=== PATIENT | female | born 1940 | race Caucasian/White ===

== ENCOUNTER → 2017-10-31 12:11 | Outpatient (CLI) | payer MEDICARE, MEDICAID, SELFPAY ==
--- NOTE | 2017-10-31 12:18 | XR_ITS ---
XR shoulder LT min 2V HISTORY: ITS.REASON: LT SHOULDER PAIN ORDERING PHYSICIAN: Elvie Murdock PATIENT AGE: 77 years COMPARISON: None FINDINGS: There are moderate to severe osteoarthritic changes of the glenohumeral joint with decrease in the joint space, osteosclerosis, and osteophyte formation. There is subacromial stenosis which may be seen with rotator cuff disease. No acute fracture or dislocation. No lytic or blastic change. IMPRESSION: Osteoarthritis of left shoulder. Subacromial stenosis which may result in rotator cuff disease and may be better evaluated with MRI clinically warranted
== END ==
PROVIDERS: PCP Nurse Practitioner Family; Visit Provider Nurse Practitioner Family
DX: M25.512 Pain in left shoulder (principal)
CPT/HCPCS: 73030

== ENCOUNTER 2020-11-03 10:00 | Outpatient (RCR) | payer MEDICARE, MEDICAID, SELFPAY | END 2020-12-01 11:17 | disposition home or self-care (01) | LOC: OT 10:00 | PROVIDERS: PCP Nurse Practitioner Family; Visit Provider Orthopaedic Surgery Adult Reconstructive Orthopaedic Surgery | DX: M25.512 Pain in left shoulder (principal); M19.012 Primary osteoarthritis, left shoulder | CPT/HCPCS: 97014; 97035; 97110; 97140; 97165; 97530; G0283 ==

== ENCOUNTER 2022-01-29 21:09 | Emergency (ER) | payer MEDICARE, MEDICAID, SELFPAY ==
[2022-01-29 21:10] VITALS: BP 130/99; PULSE 72; RESP 16; TEMP 37.6; O2SAT 95; BMI 34.4
--- NOTE | 2022-01-29 21:18 | ECG_ITS ---
APPROVED REPORT Exam: Resting ECG HR:71 bpm ECG Measurements Heart Rate 71 AXES WV 165 P 52 QRSd 92 QRS 11 QT 385 T 56 QTc 408 Conclusion SINUS RHYTHM NONSPECIFIC ST & T-WAVE ABNORMALITY BORDERLINE ECG UNCONFIRMED REPORT Electronically signed by : Juaquin Jessica MD 01/30/2022 18:41:36
--- NOTE | 2022-01-29 21:25 | XR_ITS ---
PROCEDURE INFORMATION: Exam: XR Chest Exam date and time: 01/29/2022 9:46 PM Age: 81 years old Clinical indication: Shortness of breath TECHNIQUE: Imaging protocol: XR of the chest. Views: 2 views. COMPARISON: CR CXR CHEST(2 VIEWS-NOT PORTABLE) 10/31/2016 6:20 PM FINDINGS: Lungs: Stable interstitial coarsening. No consolidation. Pleural spaces: Unremarkable. No pleural effusion. No pneumothorax. Heart/Mediastinum: Unremarkable. No cardiomegaly. Bones/joints: Unremarkable. IMPRESSION: No acute findings.
--- NOTE | 2022-01-29 21:38 | HMH.EDSOB ---
ED Disposition Clinical Impression: UTI (urinary tract infection) Qualifiers: Urinary tract infection type: site unspecified Hematuria presence: without hematuria Qualified Code(s): N39.0 - Urinary tract infection, site not specified Disposition: Home, Self-Care Condition on Discharge: Good Instructions: DI for Urinary Tract Infection (UTI) Additional Instructions: fluids and call pcp for follow up and urine culture results Prescriptions: levoFLOXacin [Levaquin 500mg tab] 500 mg PO DAILY #7 tab Transmission Status: Pending to [facility] Referrals: Elvie Murdock [Primary Care Provider] - - Critical Care Critical Care Time: No Attestation: On 01/29/22, the high probability of a clinically significant, sudden or life threatening deterioration of the following system(s) required my full and direct attention, intervention and personal management. The time I documented below is in addition to time spent performing reported procedures but includes the following listed in this critical care notation. Medical Decision Making - Medical Records Medical records reviewed: Yes: I reviewed the patient's medical records. - [place] Inquiry Pt receiving controlled substance: No Vital Signs: 01/29/22 21:10 01/29/22 22:00 01/29/22 22:04 Temperature 99.7 F H Temperature Source Oral Pulse Rate 67 69 Pulse Rate [Left Radial] 72 Respiratory Rate 16 Blood Pressure 137/77 Blood Pressure [Right Arm] 130/99 H Blood Pressure Mean [Right Arm] 109 Blood Pressure Source [Right Arm] Automatic Cuff Blood Pressure Position [Right Arm] Sitting 02 Sat by Pulse Oximetry 95 93 L Oxygen Delivery Method Room Air Room Air 01/29/22 22:31 01/29/22 23:00 01/29/22 23:30 Temperature Temperature Source Pulse Rate 66 65 65 Pulse Rate [Left Radial] Respiratory Rate Blood Pressure 117/65 123/56 L 125/57 L Blood Pressure [Right Arm] Blood Pressure Mean [Right Arm] Blood Pressure Source [Right Arm] Blood Pressure Position [Right Arm] 02 Sat by Pulse Oximetry 92 L 86 L 89 L Oxygen Delivery Method 01/30/22 00:01 Temperature Temperature Source Pulse Rate 65 Pulse Rate [Left Radial] Respiratory Rate Blood Pressure 147/75 H Blood Pressure [Right Arm] Blood Pressure Mean [Right Arm] Blood Pressure Source [Right Arm] Blood Pressure Position [Right Arm] 02 Sat by Pulse Oximetry 95 Oxygen Delivery Method - Lab Data Lab results reviewed: Yes: I reviewed the patient's lab results. Lab Results 01/29/22 21:25: Specimen Source Right radial, O2 % Ra, ABG pH 7.43, ABG pCO2 45.3 H, ABG pO2 67.7 L, ABG HCO3 29.2 H, ABG Total CO2 30.6 H, ABG O2 Saturation 94, ABG Base Excess 4.8 H, Amadeo Test Acceptable 01/29/22 21:36: Urine Color Yellow, Urine Appearance Sl cloudy, Urine pH 6.5, Ur Specific Mather 1.025, Urine Protein Negative, Urine Glucose (UA) 2+, Urine Ketones Negative, Urine Blood Negative, Urine Nitrate Positive, Urine Bilirubin Negative, Urine Urobilinogen 1.0, Ur Leukocyte Esterase Trace, Urine RBC None, Urine WBC 10-20, Ur Squamous Epith Cells 3-5, Urine Bacteria 4+ 01/29/22 21:36: WBC 7.8, RBC 4.69, Hgb 14.9, Hct 44.8, MCV 95.5, MCH 31.9 H, MCHC 33.4, RDW 13.0, Plt Count 203, MPV 8.4, Neut % (Auto) 58.2, Lymph % (Auto) 30.7, [place] % (Auto) 6.0, Eos % (Auto) 1.9, Baso % (Auto) 3.2 H, Neut # (Auto) 4.6, Lymph # (Auto) 2.4, [place] # (Auto) 0.5, Eos # (Auto) 0.2, Baso # (Auto) 0.3 H, ESR 20 01/29/22 21:36: Sodium 140, Potassium 3.4 L, Chloride 100, Carbon Dioxide 36 H, Anion Gap 7.4, BUN 23 H, Creatinine 0.80, Estimated Creat Clear 71, Estimated GFR 69, Est GFR ( Amer) 84, Glucose 107 H, Calcium 10.0, Total Bilirubin 0.1 L, Direct Bilirubin 0.0, Conjugated Bilirubin 0.0, Indirect Bilirubin 0.1, Unconjugated Bilirubin 0.5, AST 28, ALT 17, Alkaline Phosphatase 57, Troponin I < 0.01, C-Reactive Protein 1.7, Total Protein 6.9, Albumin 4.2 01/29/22 21:36: Lactate 1.1 01/29/22 21:36: TSH
[2022-01-29 21:46] LABS: Microscopic, Urine URINE MICROSCOPIC (MICROSCOPIC)
[2022-01-29 21:48] LABS: Basophils # 0.3 K/mm3 (0-0.2); Basophils % 3.2 % (0.1-2.0); Eosinophils # 0.2 K/mm3 (0.0-0.4); Eosinophils % 1.9 % (0.1-12.0); Hematocrit 44.8 % (37.0-47.0); Hemoglobin 14.9 g/dL (12.2-16.2); Lymphocytes # 2.4 K/mm3 (0.7-4.5); Lymphocytes % 30.7 % (10-50); Mean Corpuscular HGB Conc 33.4 g/dL (31.8-35.4); Mean Corpuscular Hemoglobin 31.9 pg (27.0-31.2); Mean Corpuscular Volume 95.5 fl (81-99); Mean Platelet Volume 8.4 fl (7.4-10.4); Monocytes # 0.5 K/mm3 (0.1-1.0); Neutrophils # 4.6 K/mm3 (1.8-7.8); Neutrophils % 58.2 % (37.0-80.0); Platelet Count 203 K/mm3 (142-424); Red Blood Count 4.69 M/mm3 (4.20-5.40); White Blood Count 7.8 K/mm3 (4.8-10.8)
[2022-01-29 21:51] LABS: ABG Base Excess 4.8 mmol/L (-2.4-2.3); ABG HCO3 29.2 mmhg (22.0-26.0); ABG Oxygen Saturation 94 % (90-100); ABG PCO2 45.3 mmhg (35.0-45.0); ABG PH 7.43 mmol/L (7.35-7.45); ABG PO2 67.7 mmhg (80-100); ABG TCO2 30.6 mmhg (23-27)
[2022-01-29 21:52] LABS: Allen's Test Acceptable; Oxygen RA %; Source Right Radial
[2022-01-29 21:55] LABS: Alanine Aminotransferase 17 U/L (12-78); Albumin Level 4.2 g/dl (3.5-5.0); Alkaline Phosphatase 57 U/L (38-126); Anion Gap 7.4 mEq/L (5-15); Aspartate Amino Transferase 28 U/L (14-36); Bilirubin,Unconjugated 0.5 mg/dL (0.0-1.1); Blood Urea Nitrogen 23 mg/dl (7-17); Carbon Dioxide 36 mmol/L (22.0-30.0); Chloride 100 mmol/L (98-107); Creatinine Clearance Estimated 71 mL/min (50-200); Estimated Glomerular Filt Rate 69 ml/min (>60); GFR (African American) 84 ML/MIN (>60); Glucose 107 mg/dl (74-100); Potassium 3.4 mmoL/L (3.5-5.1); Sodium 140 mmol/L (136-145); Total Protein,Serum 6.9 g/dl (6.3-8.2)
[2022-01-29 21:56] LABS: Coronavirus 19, PCR Not Detected (NotDetected); Influenza A, PCR Not Detected (NotDetected); Influenza B, PCR Not Detected (NotDetected)
[2022-01-29 21:58] LABS: Bilirubin,Indirect 0.1 mg/dL (0.0-0.9); Bilirubin,Total 0.1 mg/dl (0.2-1.3)
[2022-01-29 22:00] VITALS: PULSE 67; PULSE 68
[2022-01-29 22:00] LABS: Appearance,Urine SL CLOUDY (Clear); Bilirubin,Urine Negative (Negative); Blood, Urine Negative (Negative); C-Reactive Protein 1.7 mg/L (0-4); Color,Urine YELLOW (Yellow); Glucose,Urine (UA) 2+ (Negative); Ketones,Urine Negative (Negative); Leukocyte Esterase,Urine TRACE (Negative); Nitrate,Urine POSITIVE (Negative); PH,Urine 6.5 (5.0-8.5); Protein,Urine Negative (Negative); Specific Gravity, Urine 1.025 (1.005-1.030)
[2022-01-29 22:04] VITALS: BP 137/77; PULSE 69; O2SAT 93
[2022-01-29 22:04] LABS: Lactic Acid 1.1 mmol/L (0.7-2.1)
[2022-01-29 22:06] LABS: NT Pro Brain Natriuretic Pep. 256 pg/mL (0-450)
[2022-01-29 22:17] LABS: Bacteria,Urine 4+ /lpf
[2022-01-29 22:18] LABS: Troponin I < 0.01 ng/ml (0.00-0.034)
[2022-01-29 22:29] LABS: T4 (Thyroxine) 8.1 ug/dl (5.53-11.0)
[2022-01-29 22:31] VITALS: BP 117/65; PULSE 66; O2SAT 92
[2022-01-29 22:41] LABS: Erythrocyte Sedimentation Rate 20 mm/hr (0-30)
[2022-01-29 22:42] LABS: Thyroid Stimulating Hormone 1.84 uIU/mL (0.465-4.68)
[2022-01-29 23:00] VITALS: BP 123/56; PULSE 65; O2SAT 86
[2022-01-29 23:30] VITALS: BP 125/57; PULSE 65; O2SAT 89
[2022-01-30 00:01] VITALS: BP 147/75; PULSE 65; O2SAT 95
[2022-01-30 00:54] LABS: Troponin I < 0.01 ng/ml (0.00-0.034)
[2022-01-30 00:56] VITALS: BP 147/75; PULSE 65; RESP 16; TEMP 36.2; O2SAT 95
== END 2022-01-30 01:07 | disposition home or self-care (01) ==
PROVIDERS: Emergency Provider Emergency Medicine; PCP Nurse Practitioner Family
DX: N39.0 Urinary tract infection, site not specified (principal); Z79.82 Long term (current) use of aspirin; Z79.4 Long term (current) use of insulin; Z79.899 Other long term (current) drug therapy; E11.9 Type 2 diabetes mellitus without complications; I10 Essential (primary) hypertension; E78.5 Hyperlipidemia, unspecified; Z85.9 Personal history of malignant neoplasm, unspecified
CPT/HCPCS: 71046; 80048; 80076; 81001; 82803; 83605; 83880; 84436; 84443; 84484; 85025; 85651; 86140; 87040; 87086; 87088; 87186; 93005; 94640; 96365; 96366; 96375; 99284; C9803; J0696; U0003; U0005

== ENCOUNTER → 2022-09-05 17:12 | Outpatient (CLI) | payer MEDICARE, MEDICAID, SELFPAY | PROVIDERS: PCP Nurse Practitioner Family; Visit Provider Nurse Practitioner Family | DX: L60.3 Nail dystrophy (principal) | CPT/HCPCS: 87102; 87206; 87220; 88304; 88312 ==

== ENCOUNTER 2023-03-13 14:56 | Observation (INO) | payer MEDICARE, MEDICAID, SELFPAY ==
[2023-03-13] VITALS (9 sets, daily range): BP systolic 125–151; BP diastolic 60–90; PULSE 66–79; RESP 18–20; TEMP 36.4–36.8; O2SAT 93–99; BMI 41.7; BMI 42.5
--- NOTE | 2023-03-13 14:48 | ECG_ITS ---
APPROVED REPORT Exam: Resting ECG HR:78 bpm ECG Measurements Heart Rate 78 AXES WA 158 P 48 QRSd 87 QRS -10 QT 373 T 20 QTc 406 Conclusion SINUS RHYTHM WITH OCCASIONAL ECTOPIC PREMATURE COMPLEXES MODERATE VOLTAGE CRITERIA FOR LVH, CONSIDER NORMAL VARIANT [MEETS CRITERIA IN ONE OF: R(aVL), S(V1), R(V5), R(V5/V6)+S(V1)] BORDERLINE ECG UNCONFIRMED REPORT Electronically signed by : Juaquin Jessica MD 03/13/2023 21:00:23
--- NOTE | 2023-03-13 15:10 | XR_ITS ---
FINAL REPORT CLINICAL HISTORY: weakness, smoker COMPARISON: 01/29/2022 FINDINGS: A portable view of the chest was obtained. Cardiac and mediastinal silhouettes are within normal limits. There is a left basilar opacity, favor atelectasis. There is no pleural effusion or pneumothorax. IMPRESSION: Hyper left basilar opacity, favor atelectasis. Reviewed, Interpreted and Dictated by Janny Vaughn MD Transcribed by Josh Mir Authenticated and [facility]
--- NOTE | 2023-03-13 15:44 | CT_ITS ---
PROCEDURE INFORMATION: Exam: CTA Chest With Contrast Exam date and time: 03/13/2023 6:33 PM Age: 82 years old Clinical indication: Shortness of breath; Additional info: SOA TECHNIQUE: Imaging protocol: Computed tomographic angiography of the chest with contrast. Exam focused on the arteries. 3D rendering (Not supervised by radiologist): MIP and/or 3D reconstructed images were created by the technologist. Radiation optimization: All CT scans at this facility use at least one of these dose optimization techniques: automated exposure control; mA and/or kV adjustment per patient size (includes targeted exams where dose is matched to clinical indication); or iterative reconstruction. Contrast material: ISOVUE; Contrast volume: 75 ml; Contrast route: INTRAVENOUS (IV); REPORTING DATA: Count of CT and Cardiac NM exams in prior 12 months: This patient has received 0 known CTs and 0 known cardiac nuclear medicine studies in the 12 months prior to the current study. COMPARISON: CR XR CHEST PORTABLE 03/13/2023 3:10 PM FINDINGS: Pulmonary arteries: Normal. No pulmonary emboli. Aorta: Unremarkable. No aortic aneurysm. No aortic dissection. Lungs: A rounded soft tissue density mass is noted in the posterior right lower lobe measuring 3.2 cm centered on axial image 279 of series 8. Mild bibasilar atelectasis. Lung beckett otherwise clear. Pleural spaces: Unremarkable. No pneumothorax. No pleural effusion. Heart: Heart size is enlarged. Coronary arteries: Coronary artery calcifications are noted. Lymph nodes: Unremarkable. No enlarged lymph nodes. Adrenal glands: Left adrenal nodule redemonstrated. Upper abdomen viscera otherwise unremarkable. Bones/joints: Unremarkable. No acute fracture. Soft tissues: See Adrenal glands finding. IMPRESSION: 1. No evident PE. No other acute findings. 2. A 3.2 cm rounded soft tissue density mass in the posterior right lower lobe. This might conceivably reflect a rounded pneumonia but developing tumor should be considered a possibility until proven otherwise. Further workup with CT PET or tissue sampling may be indicated. 3. Left adrenal nodule as noted in the CT abdomen redemonstrated. Please refer to CT abdomen for recommendations.
--- NOTE | 2023-03-13 15:44 | CT_ITS ---
PROCEDURE INFORMATION: Exam: CT Abdomen And Pelvis With Contrast Exam date and time: 03/13/2023 6:33 PM Age: 82 years old Clinical indication: Abdominal pain; Generalized; Additional info: Abd pain, SOA, hernia TECHNIQUE: Imaging protocol: Computed tomography of the abdomen and pelvis with contrast. Radiation optimization: All CT scans at this facility use at least one of these dose optimization techniques: automated exposure control; mA and/or kV adjustment per patient size (includes targeted exams where dose is matched to clinical indication); or iterative reconstruction. Contrast material: ISOVUE; Contrast volume: 75 ml; Contrast route: IV; REPORTING DATA: Count of CT and Cardiac NM exams in prior 12 months: This patient has received 0 known CTs and 0 known cardiac nuclear medicine studies in the 12 months prior to the current study. COMPARISON: CR XR CHEST PORTABLE 03/13/2023 3:10 PM FINDINGS: Lungs: See Pleural spaces finding. Pleural spaces: A 3.6 cm rounded soft tissue mass noted in the posterior right lower lobe in the costophrenic angle region centered on axial image 25. Mild bibasilar atelectasis. Heart: Heart size is enlarged.Coronary artery calcifications are noted. Liver: Normal. No mass. Gallbladder and bile ducts: Gallbladder has been removed. No evident bile duct dilatation allowing for prior cholecystectomy. Pancreas: Normal. No ductal dilation. Spleen: Normal. No splenomegaly. Adrenal glands: Indeterminate 17 x 11 mm left adrenal nodule. Kidneys and ureters: Normal. No hydronephrosis. Stomach and bowel: Multiple diverticula of the sigmoid. Status post partial colectomy to the mid transverse colon level with ileocolonic anastomosis. A [id number] upper mid abdomen supraumbilical ventral hernia noted with extension of the proximal portion of the residual colon into the hernia without definite incarceration. The neck of the hernia measures 9.5 cm. Colon otherwise unremarkable. Appendix: No evidence of appendicitis. Intraperitoneal space: Unremarkable. No free air. No significant fluid collection. Vasculature: Atherosclerotic changes of the aorta and iliacs noted. No evidence of aneurysm. Lymph nodes: Unremarkable. No enlarged lymph nodes. Urinary bladder: Unremarkable as visualized. Reproductive: Unremarkable as visualized. Bones/joints: Unremarkable. No acute fracture. Soft tissues: Additional complex [id number] midabdomen umbilical region ventral hernia noted associated with hernia repair mesh. There is protrusion of the medial portion of the hernia repair mesh as well as associated intra-abdominal fat and some small bowel loops into the hernia. The hernia measures approximally 8.2 cm. No definite incarceration of the small bowel loops. GI tract structures otherwise unremarkable with no evident wall thickening allowing for incomplete distention. IMPRESSION: 1. Right lower lobe 3.6 cm mass that might reflect developing tumor. Further workup advised. 2. Incidental 17 x 11 mm left adrenal nodule. If the right lower lobe mass proves to be tumor then further workup with a nonemergent adrenal CT or MRI may be indicated. If the mass does not prove to be tumor then consider 12 month follow-up adrenal CT. 3. Upper mid abdomen ventral hernia containing a portion of the residual proximal colon without incarceration. 4. Complex lower midabdomen hernia at the umbilicus region with some extension of small bowel loops without incarceration. 5. Additional nonemergent findings as above.
--- NOTE | 2023-03-13 16:36 | PC.NURSE ---
lab to come down and draw blood
--- NOTE | 2023-03-13 16:43 | HMH.EDGENADL ---
Discharge Plan Disposition Condition: Good Chief Complaint: Weakness Prescriptions Prescriptions: No Action aspirin 81 mg tablet,delayed release (DR/EC) 81 mg PO DAILY ketoconazole 2 % cream 1 applic topical BID 30 Days Qty: 30 2RF omeprazole 20 mg capsule,delayed release(DR/EC) 20 mg PO DAILY Patient Comments: TAKE 1 CAPSULE (20 MG) BY ORAL ROUTE ONCE DAILY 30 MINUTES TO 1 HOUR BEFORE A MEAL NEEDED HEARTBURN insulin asp prt-insulin aspart 100 unit/mL (70-30) solution 45 unit SQ DAILY Patient Comments: INJECT 45 UNITS IN THE MORNING AND 42 UNITS IN THE EVENING latanoprost 0.005 % drops 1 drp OPHTHALMIC BID lisinopril 30 mg tablet 30 mg PO DAILY gabapentin 800 mg tablet 800 mg PO TID rosuvastatin 10 mg tablet 10 mg PO DAILY metoprolol succinate 100 mg tablet extended release 24 hr 1 tab PO DAILY hydrochlorothiazide 25 mg tablet 25 mg PO DAILY Patient Comments: TAKE 1 TABLET BY MOUTH EVERY MORNING ergocalciferol (vitamin D2) 1,250 mcg (50,000 unit) capsule 1,250 mcg PO DAILY Patient Comments: TAKE 1 CAPSULE BY MOUTH ONCE A WEEK Vitamin B-6 50 mg capsule 50 mg PO DAILY gabapentin 600 mg tablet 600 mg PO cholecalciferol (vitamin D3) 1,250 mcg (50,000 unit) capsule 1,250 mcg PO levofloxacin 500 MG tablet 500 mg PO DAILY Qty: 7 0RF Referrals Follow up/Referrals: Provider,Referral, MD [Primary Care Provider] - See instructions Clinical Impressions Clinical Impression: Generalized weakness, Bilateral edema of lower extremity, Lung mass, Adrenal mass Discharge ED Provider: Giovanna Dickerson General Adult HPI General Chief complaint: Weakness Stated complaint: shortness of air Time Seen by Provider: 03/13/23 15:21 Mode of Arrival: EMS Source of Information: Patient Limitations: No Limitations Description of Symptoms (Recalled from ER Triage Doc. by RN): pt to ed c/o generalized weakness and shortness of breath. pt states she does not have oxygen at home but does use nebulizers. pt states she gave herself a treatment at approx 1400. pt states a hx of copd. History of Present Illness HPI narrative: This patient is an 82-year-old female who reports a history of type 2 diabetes, COPD, colon cancer status post resection, abdominal hernia, peripheral neuropathy, and obesity presenting to the emergency department for evaluation with concern for shortness of breath, generalized weakness, abdominal pain, nausea, and bilateral lower extremity swelling. She states the lower extremity swelling started approximately a week ago and has progressively worsened. She is on Lasix at home and reports compliance with this. She states that she developed the nausea, abdominal pain, and shortness of breath today. She states that it may be her hernias that is bothering her, but they have not changed in appearance. She denies any fevers, chills, vomiting, or other concerns. She does note constipation with last bowel movement being just before lunch today, but it was very hard for her. Nothing seems to make her symptoms better or worse. She is not typically on oxygen at home. Related Data Home Medications Medication Instructions Recorded Confirmed ergocalciferol (vitamin D2) 1,250 1,250 mcg PO DAILY Supplement 08/13/19 01/15/23 mcg (50,000 unit) capsule gabapentin 800 mg tablet 800 mg PO TID NERVE PAIN 08/13/19 01/15/23 hydrochlorothiazide 25 mg tablet 25 mg PO DAILY Hypertension 08/13/19 01/15/23 latanoprost 0.005 % eye drops 1 drp OPHTHALMIC BID EYE CARE 08/13/19 01/15/23 lisinopril 30 mg tablet 30 mg PO DAILY Hypertension 08/13/19 01/15/23 metoprolol succinate 100 mg 1 tab PO DAILY Hypertension 08/13/19 01/15/23 tablet,extended release 24 hr pyridoxine (vitamin B6) 50 mg 50 mg PO DAILY Diet supplement 08/13/19 01/15/23 capsule (Vitamin B-6) rosuvastatin 10 mg tablet 10 mg PO DAILY Cholesterol 08/13/19 0
[2023-03-13 17:23] LABS: Basophils % 0.5 % (0.1-2.0); Eosinophils # 0.2 K/mm3 (0.0-0.4); Eosinophils % 2.2 % (0.1-12.0); Hematocrit 41.6 % (37.0-47.0); Hemoglobin 13.2 g/dL (12.2-16.2); Lymphocytes # 2.2 K/mm3 (0.7-4.5); Lymphocytes % 30.7 % (10-50); Mean Corpuscular HGB Conc 31.8 g/dL (31.8-35.4); Mean Corpuscular Hemoglobin 30.6 pg (27.0-31.2); Mean Corpuscular Volume 96.2 fl (81-99); Mean Platelet Volume 7.2 fl (7.4-10.4); Monocytes # 0.3 K/mm3 (0.1-1.0); Monocytes % 4.7 % (1.7-9.3); Neutrophils # 4.4 K/mm3 (1.8-7.8); Neutrophils % 61.9 % (37.0-80.0); Platelet Count 207 K/mm3 (142-424); Red Blood Count 4.33 M/mm3 (4.20-5.40); Red Cell Distribution Width 12.5 % (11.5-17.5); White Blood Count 7.1 K/mm3 (4.8-10.8)
[2023-03-13 17:36] LABS: Alanine Aminotransferase 20 U/L (12-78); Albumin Level 3.9 g/dl (3.5-5.0); Albumin/Globulin Ratio 2.1 (1.1-1.8); Alkaline Phosphatase 75 U/L (38-126); Anion Gap 9.1 mEq/L (5-15); Aspartate Amino Transferase 26 U/L (14-36); Bilirubin,Total 0.4 mg/dl (0.2-1.3); Blood Urea Nitrogen 16 mg/dl (7-17); Carbon Dioxide 31 mmol/L (22.0-30.0); Chloride 99 mmol/L (98-107); Creatinine Clearance Estimated 35 mL/min (50-200); Estimated Glomerular Filt Rate 80 ml/min (>60); GFR (African American) 97 ML/MIN (>60); Globulin 1.9 g/dL (1.3-3.2); Glucose 279 mg/dl (74-100); Lactic Acid 1.8 mmol/L (0.7-2.1); Potassium 4.1 mmoL/L (3.5-5.1); Sodium 135 mmol/L (136-145); Total Protein,Serum 5.8 g/dl (6.3-8.2)
[2023-03-13 17:45] LABS: NT Pro Brain Natriuretic Pep. 1480 pg/mL (0-450)
[2023-03-13 17:47] LABS: Troponin I < 0.01 ng/ml (0.00-0.034)
--- NOTE | 2023-03-13 18:23 | PC.NURSE ---
US Guided 20g PIV inserted to left AC. Pt tolerated well.
--- NOTE | 2023-03-13 19:10 | PC.NURSE ---
Pt to bathroom with use of cane and wheelchair
[2023-03-13 19:11] LABS: Troponin I < 0.01 ng/ml (0.00-0.034)
[2023-03-13 19:19] LABS: Microscopic, Urine URINE MICROSCOPIC (MICROSCOPIC)
[2023-03-13 19:23] LABS: Appearance,Urine CLEAR (Clear); Bilirubin,Urine Negative (Negative); Blood, Urine Negative (Negative); Color,Urine YELLOW (Yellow); Glucose,Urine (UA) Negative (Negative); Ketones,Urine Negative (Negative); Leukocyte Esterase,Urine Negative (Negative); Nitrate,Urine Negative (Negative); PH,Urine 5.5 (5.0-8.5); Protein,Urine Negative (Negative); Urobilinogen,Urine 0.2 EU/dl (0.2)
[2023-03-13 19:34] LABS: Squamous Epithelial Cell,Urine Occasional #/hpf (0-5)
--- NOTE | 2023-03-13 20:19 | PC.NURSE ---
notified powerhouse tender for admission
--- NOTE | 2023-03-13 20:20 | PC.NURSE ---
PATIENT ADMITTED TO 206 OBSERVATION TO SERVICE OF HOSPITALIST DX CHF, WEAKNESS, AND LUNG MASS.
--- NOTE | 2023-03-13 21:02 | PC.NURSE ---
pts LAC and above has bruised from a previous IV that has went bad.
--- NOTE | 2023-03-13 21:05 | PC.NURSE ---
attempted to call report, no answer. will try again in a few minutes.
--- NOTE | 2023-03-13 21:07 | PC.NURSE ---
Pt repositioned in bed for comfort
--- NOTE | 2023-03-13 21:08 | EXP.HP ---
History of Present Illness *Admission Date: 03/13/23 *Reason for visit:: weakness and SOB *History of present illness: This is an 82-year-old female who reports a history of type 2 diabetes, COPD, colon cancer status post resection, abdominal hernia, peripheral neuropathy, and obesity presenting to the ER for evaluation with concern for shortness of breath, generalized weakness, abdominal pain, nausea, and bilateral lower extremity swelling. She states the lower extremity swelling started approximately a week ago and has progressively worsened. She is on Lasix at home and reports compliance with this. She states that she developed the nausea, abdominal pain, and shortness of breath today. She states that it may be her hernias that is bothering her, but they have not changed in appearance. She denies any fevers, chills, vomiting, or other concerns. She does note constipation with last bowel movement being just before lunch today, but it was very hard for her. Nothing seems to make her symptoms better or worse. She is not typically on oxygen at home. Admitted for management and further work up [facility] Disclaimer: The information contained in this section may have been updated after the patient was seen, as this information can be updated by other users. Medical History (Updated 03/13/23 @ 22:02 by Kandice Prabhakar RN) Cataract Colon cancer Diabetes mellitus, type 2 Gallstone Right arm fracture Surgical History (Updated 03/13/23 @ 22:02 by Kandice Prabhakar RN) History of cholecystectomy History of resection of large bowel History of total left knee replacement Social History (Updated 03/13/23 @ 22:03 by Kandice Prabhakar RN) Smoking Status: Current every day smoker alcohol intake: never current occupational status: retired Travel in the last 8 weeks: None Review of Systems Review of Systems Review of systems:: pertinent systems reviewed and negative unless documented below Meds Home Medications and Allergies Home Medications Medication Instructions Recorded Confirmed Type latanoprost 0.005 % eye drops 1 drp OPHTHALMIC BID EYE CARE 08/13/19 03/13/23 History lisinopril 30 mg tablet 30 mg PO DAILY Hypertension 08/13/19 03/13/23 History metoprolol succinate 100 mg 1 tab PO DAILY Hypertension 08/13/19 03/13/23 History tablet,extended release 24 hr pyridoxine (vitamin B6) 50 mg 50 mg PO DAILY Diet supplement 08/13/19 03/13/23 History capsule (Vitamin B-6) rosuvastatin 10 mg tablet 10 mg PO DAILY Cholesterol 08/13/19 03/13/23 History aspirin 81 mg tablet,delayed 81 mg PO DAILY Blood thinner 07/13/20 03/13/23 History release ketoconazole 2 % topical cream 1 applic topical BID fungal 07/13/20 03/13/23 Rx infection 30 days #30 grams insulin aspar prt-insulin aspart 45 unit SQ DAILY Diabetes 11/08/20 03/13/23 History 100 unit/mL (70-30) subcutaneous soln omeprazole 20 mg capsule,delayed 20 mg PO DAILY GERD 11/08/20 03/13/23 History release ergocalciferol (vitamin D2) 1,250 1,250 mcg PO WEEKLY Supplement 03/13/23 03/13/23 History mcg (50,000 unit) capsule (Vitamin D2) furosemide 20 mg tablet 20 mg PO DAILY Edema 03/13/23 03/13/23 History tramadol 50 mg tablet 50 mg PO BID PRN Pain (Scale Score 03/13/23 03/13/23 History 4-6) New Prescriptions to Start Prescriptions: Allergies Allergy/AdvReac Type Severity Reaction Status Date / Time acetaminophen [From Lortab] Allergy Unknown BLACK OUT Verified 01/15/23 10:10 hydrocodone [From Lortab] Allergy Unknown BLACK OUT Verified 01/15/23 10:10 Exam Data for Last 24 hours Vital signs and Labs for Last 24 Hours: Temp Pulse Resp BP Pulse Ox O2 Del Method 98.2 F 66 20 133/60 93 L Room Air 03/13/23 15:06 03/13/23 19:31 03/13/23 15:06 03/13/23 19:31 03/13/23 19:31 03/13/23 19:31 Laboratory Results - last 24 hr 03/13/23 17:05: WBC 7.1, RBC 4.33, Hgb 13.2, Hct 41.6, MCV 96.2, MCH 30.6, MCHC 3
--- NOTE | 2023-03-13 21:13 | PC.NURSE ---
report given to Jasmina SORTO
--- NOTE | 2023-03-13 21:15 | PC.NURSE ---
call person paged for patient
--- NOTE | 2023-03-13 21:23 | PC.NURSE ---
RECEIVED PHONE REPORY FROM ALMAS Fry /ED NURSE AT [phone]. PATIENT IS 82 YO FEMALE . DIAGNOSIS: CHF, WEAKNESS, LUNG MASS.. YO BE ADMITTED TO ROOM 206.
--- NOTE | 2023-03-13 21:30 | PC.NURSE ---
PATIENT ARRIVED AT 2125 VIA STRETCHER. ADMITTED TO ROOM 206.
--- NOTE | 2023-03-13 21:30 | PC.NURSE ---
pt arrived to the floor via stretcher @ [id number]
--- NOTE | 2023-03-13 21:41 | PC.NURSE ---
Zeb Guerrero, industrial/organizational psychologist returned page states he will be here in approx. 45 minutes, family notified
[2023-03-13 22:43] LABS: POC Glucose,Bedside 200 (70-110)
--- NOTE | 2023-03-13 23:18 | PC.NURSE ---
Pt states at this time that she would like to be a full code. Code status changed.
[2023-03-14] VITALS (7 sets, daily range): BP systolic 115–158; BP diastolic 62–95; PULSE 60–80; RESP 18–20; TEMP 36.5–36.7; O2SAT 93–98; BMI 42.5
[2023-03-14 05:20] LABS: POC Glucose,Bedside 282 (70-110)
--- NOTE | 2023-03-14 06:07 | PC.NURSE ---
FSBS THIS AM WAS 282. HAS HAD A QUIET NIGHT. NO C/O PAIN OR SOA. 02 AT 2LNC. NO COUGH OR RESP. DISTRESS NOTED. UOP 2000 ML S/P LASIX 80 MG IVP SLOW. EDEMA IN BLEs IMPROVING.
[2023-03-14 06:39] LABS: Alanine Aminotransferase 19 U/L (12-78); Albumin Level 3.7 g/dl (3.5-5.0); Albumin/Globulin Ratio 1.6 (1.1-1.8); Alkaline Phosphatase 68 U/L (38-126); Anion Gap 6.7 mEq/L (5-15); Aspartate Amino Transferase 27 U/L (14-36); Bilirubin,Total 0.8 mg/dl (0.2-1.3); Blood Urea Nitrogen 15 mg/dl (7-17); Calcium 8.9 mg/dl (8.4-10.2); Carbon Dioxide 37 mmol/L (22.0-30.0); Chloride 97 mmol/L (98-107); Creatinine Clearance Estimated 33 mL/min (50-200); Estimated Glomerular Filt Rate 80 ml/min (>60); GFR (African American) 97 ML/MIN (>60); Globulin 2.3 g/dL (1.3-3.2); Glucose 246 mg/dl (74-100); Magnesium 1.4 mg/dl (1.6-2.3); Potassium 3.7 mmoL/L (3.5-5.1); Sodium 137 mmol/L (136-145)
[2023-03-14 06:40] LABS: INR 1.01 (0.9-1.1); Prothrombin Time 10.9 seconds (10.1-12.5)
--- NOTE | 2023-03-14 08:52 | EXP.PN ---
Subjective *Date: 03/14/23 *Time: 14:47 Interval history: glucose is elevated at 246 mg is 1.4 She denies shortness of breath at rest and she denies chest pain Exam Data for Last 24 hours Vital signs and Labs for Last 24 Hours: Temp Pulse Resp BP Pulse Ox O2 Del Method O2 Flow Rate 98.0 F 74 18 126/66 97 Room Air 2 03/14/23 08:00 03/14/23 08:00 03/14/23 08:00 03/14/23 08:00 03/14/23 08:00 03/14/23 08:00 03/14/23 06:34 Laboratory Results - last 24 hr 03/13/23 17:05: WBC 7.1, RBC 4.33, Hgb 13.2, Hct 41.6, MCV 96.2, MCH 30.6, MCHC 31.8, RDW 12.5, Plt Count 207, MPV 7.2 L, Neut % (Auto) 61.9, Lymph % (Auto) 30.7, [place] % (Auto) 4.7, Eos % (Auto) 2.2, Baso % (Auto) 0.5, Neut # (Auto) 4.4, Lymph # (Auto) 2.2, [place] # (Auto) 0.3, Eos # (Auto) 0.2, Baso # (Auto) 0.0, Sodium 135 L, Potassium 4.1, Chloride 99, Carbon Dioxide 31 H, Anion Gap 9.1, BUN 16, Creatinine 0.70, Estimated Creat Clear 35, Estimated GFR 80, Est GFR ( Amer) 97, Glucose 279 H, Lactate 1.8, Calcium 9.0, Total Bilirubin 0.4, AST 26, ALT 20, Alkaline Phosphatase 75, Troponin I < 0.01, NT-Pro-B Natriuret Pep 1480 H, Total Protein 5.8 L, Albumin 3.9, Globulin 1.9, Albumin/Globulin Ratio 2.1 H 03/13/23 18:17: Troponin I < 0.01 03/13/23 19:03: Urine Color Yellow, Urine Appearance Clear, Urine pH 5.5, Ur Specific [place] 1.010, Urine Protein Negative, Urine Glucose (UA) Negative, Urine Ketones Negative, Urine Blood Negative, Urine Nitrate Negative, Urine Bilirubin Negative, Urine Urobilinogen 0.2, Ur Leukocyte Esterase Negative, Urine RBC None, Urine WBC None, Ur Squamous Epith Cells Occasional, Urine Bacteria None 03/13/23 22:36: POC Glucose 200 H 03/14/23 05:13: POC Glucose 282 H 03/14/23 06:00: PT 10.9, INR 1.01, Sodium 137, Potassium 3.7, Chloride 97 L, Carbon Dioxide 37 H, Anion Gap 6.7, BUN 15, Creatinine 0.70, Estimated Creat Clear 33, Estimated GFR 80, Est GFR ( Amer) 97, Glucose 246 H, Calcium 8.9, Magnesium 1.4 L, Total Bilirubin 0.8, AST 27, ALT 19, Alkaline Phosphatase 68, Total Protein 6.0 L, Albumin 3.7, Globulin 2.3, Albumin/Globulin Ratio 1.6 I & O for Last 24 hours: Intake & Output 03/11/23 03/12/23 03/13/23 03/14/23 23:59 23:59 23:59 23:59 Intake Total 150 / 150 Output Total 150 / 450 2400 / 2400 Balance -150 / -300 -2250 / -2250 Weight 104.922 kg 104.922 kg Constitutional Constitutional: no acute distress *Routine HEENT Exam Head: Present normocephalic Eye: Present EOMI and PERRL ENT: Present mucous membranes moist *Routine Neck Exam Neck: Present supple; Absent lymphadenopathy *Routine Respiratory Exam Respiratory: Present CTA bilaterally *Routine Cardiovascular Exam Cardiovascular: Present RRR *Routine Abdominal Exam Abdominal: Present soft and normoactive bowel sounds; Absent tenderness *Routine Extremities Exam Extremities: Absent cyanosis, clubbing or edema *Routine Skin Exam Skin: Present warm; Absent rash *Routine Neurological Exam Neurological: Present alert and oriented X3 Assessment and Plan *Assessment and plan (1) Nodule of right lung: Status: Acute Category: Medical Code(s): R91.1 - Solitary pulmonary nodule Plan Tiffany Roth is an 82 year old female with a past medical history of type 2 dm, htncopd, colon cancer (she reports it was removed and subsequently she received 1 year of chemo approximately 10 years ago), abdominal hernia, peripheral neuropathy and obesity who presented to the ER with shortness of breath x 1 week. CTA chest revealed lung mass in the posterior right lobe. ct abd reveals adrenal nodule. #New R lung mass, 3.2cm #New L adrenal nodule, 1.7 x 1.1cm #history of colon cancer #lower extremity edemia #type 2 dm echocardiogram was ordered; will need to follow up on results Appreciate pulmonology Initiated Trelegy 100 inhaler continue DuoNebs every 6 hours on as-needed basis. Continuing levofloxacin to complete a total of 5-day course. Follow with hailee
[2023-03-14 09:05] LABS: Hemoglobin 13.6 g/dL (12.2-16.2); Lymphocytes % 19.9 % (10-50); Mean Corpuscular HGB Conc 33.2 g/dL (31.8-35.4); Mean Corpuscular Hemoglobin 31.2 pg (27.0-31.2); Monocytes % 9.8 % (1.7-9.3); Neutrophils % 68.5 % (37.0-80.0); Platelet Count 209 K/mm3 (142-424); Red Blood Count 4.36 M/mm3 (4.20-5.40); Red Cell Distribution Width 11.9 % (11.5-17.5)
[2023-03-14 09:06] LABS: Basophils % 0.2 % (0.1-2.0); Eosinophils # 0.1 K/mm3 (0.0-0.4); Eosinophils % 1.5 % (0.1-12.0); Lymphocytes # 1.6 K/mm3 (0.7-4.5); Monocytes # 0.8 K/mm3 (0.1-1.0); Neutrophils # 5.7 K/mm3 (1.8-7.8)
--- NOTE | 2023-03-14 09:22 | HMH.PHAINT1 ---
Pharmacy Intervention Comments: Patient's home medication reviewed and verified with external pharmacy. -Evens Shelton, Pharm Student
--- NOTE | 2023-03-14 10:03 | PC.NURSE ---
Courtesy Round Patient wake sitting up in bed with family at bedside. Trash emptied . Patient refused ice water at this time. Patient requested another cup of coffee . No other needs voiced . Call light within reach
--- NOTE | 2023-03-14 10:21 | PC.NURSE ---
SRNA NOTE: pt ambulated to and from bathroom with one assist and the use of her personal rowland. Pt c/o slight SOB, oxygen reapplied when pt entered bed. Shelbie Roth SRNA
--- NOTE | 2023-03-14 10:25 | SW/DCPLANNER ---
Addendum entered by Zena Gillis 03/15/23 11:33: Christie martines/ [facility] stated that services will begin Saturday03/18/23 for this patient. Original Note: I spoke with this patient regarding plans once medically stable for discharge. PT/OT evaluated patient and recommended home w/ home health services. Patient is agreeable to home health at time of discharge and prefers to use [facility]. Discharge date is unknown at this time. Once ready for discharge patient information/order will be faxed to [facility].
[2023-03-14 10:40] LABS: White Blood Count 8.3 K/mm3 (4.8-10.8)
--- NOTE | 2023-03-14 10:55 | EXP.PULM.CON ---
History of Present Illness History of present illness: Ms. Roth is a 82-year-old female current smoker , > 30 PPD with documented history of COPD, diabetes, colon cancer status postresection peripheral neuropathy obesity presented to the ER with worsening respiratory generalized weakness abdominal nausea vomiting and bilateral lower extremity swelling. Upon further questionin patient admits worsening respiratory distress along with cough with no evidence of productive phlegm, denies any subjective fevers. Worsening LE swelling. [facility] Disclaimer: The information contained in this section may have been updated after the patient was seen, as this information can be updated by other users. Medical History (Updated 03/14/23 @ 12:30 by Alka Hooker MD) Acute and chronic respiratory failure with hypoxia Cataract Colon cancer Diabetes mellitus, type 2 Gallstone Nodule of right lung Pneumonia Right arm fracture Surgical History (Updated 03/13/23 @ 22:02 by Kandice Prabhakar RN) History of cholecystectomy History of resection of large bowel History of total left knee replacement Social History (Updated 03/13/23 @ 22:03 by Kandice Prabhakar RN) Smoking Status: Current every day smoker alcohol intake: never current occupational status: retired Travel in the last 8 weeks: None Review of Systems Constitutional Constitutional: Reports anorexia, Reports body ache(s) and Reports fatigue Eyes Eyes: Denies eye discharge, Denies dry eyes, Denies irritation and Denies itchy eyes ENT Ears, Nose, Mouth, and Throat: Denies epistaxis, Denies facial pain, Denies lip swelling and Denies throat swelling *Cardiovascular Cardiovascular: Reports dyspnea, Reports dyspnea on exertion, Reports leg edema and Reports orthopnea *Respiratory Respiratory: Reports chest congestion, Reports cough, Reports dyspnea, Reports dyspnea on exertion, Denies excessive phlegm production and Reports wheezing *Gastrointestinal Gastrointestinal: Denies abdominal pain, Denies belching and Denies cramping *Musculoskeletal Musculoskeletal: Reports back pain, Reports myalgias and Reports other (No small joint swelling or Pain) Psychiatric Psychiatric: Denies homicidal ideation and Denies suicidal ideation Endocrine Endocrine: Reports fatigue and Denies heat intolerance Hematologic/Lymphatic Hematologic/Lymphatic: Denies easy bleeding and Denies lymphadenopathy Allergic/Immunologic Allergic/Immunologic: Denies itchy eyes, Denies lip swelling, Denies throat swelling and Reports wheezing Pulmonology Exam Inpatient Vital signs and Labs for Last 24 Hours: Temp Pulse Resp BP Pulse Ox O2 Del Method O2 Flow Rate 98.0 F 74 18 126/66 96 Nasal Cannula 2 03/14/23 08:00 03/14/23 08:00 03/14/23 08:00 03/14/23 08:00 03/14/23 08:00 03/14/23 10:48 03/14/23 10:48 Laboratory Results - last 24 hr 03/13/23 17:05: WBC 7.1, RBC 4.33, Hgb 13.2, Hct 41.6, MCV 96.2, MCH 30.6, MCHC 31.8, RDW 12.5, Plt Count 207, MPV 7.2 L, Neut % (Auto) 61.9, Lymph % (Auto) 30.7, [place] % (Auto) 4.7, Eos % (Auto) 2.2, Baso % (Auto) 0.5, Neut # (Auto) 4.4, Lymph # (Auto) 2.2, [place] # (Auto) 0.3, Eos # (Auto) 0.2, Baso # (Auto) 0.0, Sodium 135 L, Potassium 4.1, Chloride 99, Carbon Dioxide 31 H, Anion Gap 9.1, BUN 16, Creatinine 0.70, Estimated Creat Clear 35, Estimated GFR 80, Est GFR ( Amer) 97, Glucose 279 H, Lactate 1.8, Calcium 9.0, Total Bilirubin 0.4, AST 26, ALT 20, Alkaline Phosphatase 75, Troponin I < 0.01, NT-Pro-B Natriuret Pep 1480 H, Total Protein 5.8 L, Albumin 3.9, Globulin 1.9, Albumin/Globulin Ratio 2.1 H 03/13/23 18:17: Troponin I < 0.01 03/13/23 19:03: Urine Color Yellow, Urine Appearance Clear, Urine pH 5.5, Ur Specific [place] 1.010, Urine Protein Negative, Urine Glucose (UA) Negative, Urine Ketones Negative, Urine Blood Negative, Urine Nitrate Negative, Urine Bilirubin Negative, Urine Urobilinogen 0.2, Ur Leukocyte Esterase Negative, Urine RBC None, Urine WB
[2023-03-14 11:31] LABS: POC Glucose,Bedside 321 (70-110)
--- NOTE | 2023-03-14 13:39 | PC.NURSE ---
Family concerned about left foot as the patient was sitting in the chair. Legs propped up on pillow and color returning. No changes in pulses or temperature noted.
--- NOTE | 2023-03-14 14:16 | HMH.OTEV ---
OT Inpatient Evaluation Rehab OT IP Evaluation Start: 03/14/23 11:04 Freq: ONCE Status: Active Protocol: Document 03/14/23 13:57 CHICOIGNACIO (Rec: 03/14/23 14:15 WOODROW [id number]) Rehab OT IP Assessment Subjective History This is an 82-year-old female who reports a history of type 2 diabetes, COPD, colon cancer status post resection, abdominal hernia, peripheral neuropathy, and obesity presenting to the ER for evaluation with concern for shortness of breath, generalized weakness, abdominal pain, nausea, and bilateral lower extremity swelling. She states the lower extremity swelling started approximately a week ago and has progressively worsened. She is on Lasix at home and reports compliance with this. She states that she developed the nausea, abdominal pain, and shortness of breath today. She states that it may be her hernias that is bothering her, but they have not changed in appearance. She denies any fevers, chills, vomiting, or other concerns. She does note constipation with last bowel movement being just before lunch today, but it was very hard for her. Nothing seems to make her symptoms better or worse. She is not typically on oxygen at home. Admitted for management and further work up. Patient lives alone in 1 story home with 1 step to enter. Patient uses cane to ambulates within home. Dtr has been staying with patient to assist with ADLs and fx'l mobility as needed. Family is recommending services for assistance. Subjective I need help
--- NOTE | 2023-03-14 15:00 | PC.NURSE ---
Asked family to bring in patient's home medications for pharmacy to label so we can scan.
--- NOTE | 2023-03-14 15:03 | PC.NURSE ---
. aware of patient's and family's concerns about wether she will be staining the night or going home. Family asking if cardiology will be seeing patient regarding her CHF diagnosis. . to speak with family.
--- NOTE | 2023-03-14 15:23 | HMH.PTEV ---
Physical Therapy Evaluation Rehab PT IP Evaluation Start: 03/14/23 11:04 Freq: ONCE Status: Active Protocol: Document 03/14/23 13:15 PHORMICHELLE (Rec: 03/14/23 15:22 PHORNE [id number]) Subjective/History History History 82 yowf adm to [facility] with CHF exac, general weakness, and new finding of unknown lung mass. She has hx of DM, COPD, colon CA with resection. SHe reports she lives alone, but has daughter staying with her to assist during the evenings. She reports she ambulates with SC and has 1-2 steps to enter the home. She generally needs assist with ADLs at baseline. Subjective Subjective Pt reports she feels generally weak this pm, but agrees to mobility assessment. Oxygen on via NC at 1 L/min. SHe reports tenderness to her L anterior white with palpation surrounding a small nodule ~ 1 .5 cm in diameter that she reports has grown in size over the past 2-3 wks. Rehab PT IP Eval Objective Appearance Patient Behavior Appropriate Patient Orientation Person,Place,Time Difficulty following instructions none Speech Pattern Clear Ambulation Patient Able to Ambulate Yes Ambulation Observation IP General Gait Pattern Observation Wide Based Gait Ambulation Distance (feet) 30 Ambulation Assistive Device Straight Cane Ambulation Ability Supervision/Stand by Balance Ability to Arise Able, uses arms to help Sitting Balance Steady, safe Standing Balance Steady, wide stance Dynamic Sitting Balance Ability Good Dynamic Standing Balance Ability Fair Transfers Bed Transfer Ability Supervision/Stand by Chair Transfer Ability Supervision/Stand by Sit to Stand Bed Transfer Ability Supervision/Stand by Sit to Stand Chair Transfer Ability Supervision/Stand by ROM All Extremities PT ROM Status WFL MMT All Extremities PT MMT WFL Rehab PT IP prob,goals,plan Problems Date of Evaluation: 03/14/23 Discharge Plan PT Discharge Plan Pt currently appears to be at baseline for all mobility at this time using her SC. S
[2023-03-14 16:39] LABS: POC Glucose,Bedside 237 (70-110)
[2023-03-14 21:40] LABS: POC Glucose,Bedside 200 (70-110)
--- NOTE | 2023-03-14 23:53 | PC.NURSE ---
2317 called RT, pt received duoneb per oct r/t her waking up with a croupy non-productive coughing episode.
[2023-03-15] VITALS: BP 147/71; PULSE 70; PULSE 71; RESP 18; TEMP 36.5; O2SAT 96
--- NOTE | 2023-03-15 03:43 | PC.NURSE ---
2100 03/14 med pass, pt only wanted 300mg of the ordered 600mg of gabapentin - stated that how she normally takes it. documented in MAR and wasted with Tay Glez RN. 1+ edema in bilateral LE, tenderness noted in the right LE. pt has rested well tonight, turning herself in bed t/o the night. remained on 2L NC. denies chest pain, SOA, dizziness. IV 20g LAC patent and reinforced with arm-board. walks with cane 1x assist. last BM 03/14.
[2023-03-15 04:00] VITALS: BP 125/66; PULSE 60; PULSE 61; RESP 20; TEMP 36.4; O2SAT 100; BMI 41.8
[2023-03-15 05:18] VITALS: O2SAT 99
[2023-03-15 05:27] LABS: POC Glucose,Bedside 198 (70-110)
[2023-03-15 05:38] LABS: Anion Gap 5.7 mEq/L (5-15); Blood Urea Nitrogen 18 mg/dl (7-17); Calcium 8.9 mg/dl (8.4-10.2); Carbon Dioxide 33 mmol/L (22.0-30.0); Chloride 98 mmol/L (98-107); Creatinine Clearance Estimated 33 mL/min (50-200); Estimated Glomerular Filt Rate 96 ml/min (>60); GFR (African American) 116 ML/MIN (>60); Glucose 196 mg/dl (74-100); Potassium 3.7 mmoL/L (3.5-5.1); Sodium 133 mmol/L (136-145)
[2023-03-15 05:39] LABS: Hemoglobin A1C 7.2 % (4.0-6.0)
[2023-03-15 07:31] LABS: Red Blood Count 4.16 M/mm3 (4.20-5.40); White Blood Count 6.6 K/mm3 (4.8-10.8)
[2023-03-15 07:32] LABS: Basophils # 0.1 K/mm3 (0-0.2); Basophils % 0.8 % (0.1-2.0); Eosinophils # 0.2 K/mm3 (0.0-0.4); Eosinophils % 2.3 % (0.1-12.0); Hematocrit 38.6 % (37.0-47.0); Lymphocytes # 2.2 K/mm3 (0.7-4.5); Lymphocytes % 32.7 % (10-50); Mean Corpuscular HGB Conc 33.7 g/dL (31.8-35.4); Mean Corpuscular Hemoglobin 31.3 pg (27.0-31.2); Mean Corpuscular Volume 92.8 fl (81-99); Mean Platelet Volume 10.4 fl (7.4-10.4); Monocytes # 0.7 K/mm3 (0.1-1.0); Neutrophils # 3.6 K/mm3 (1.8-7.8); Neutrophils % 53.9 % (37.0-80.0); Platelet Count 185 K/mm3 (142-424); Red Cell Distribution Width 11.7 % (11.5-17.5)
[2023-03-15 08:00] VITALS: BP 132/78; PULSE 64; PULSE 66; RESP 16; TEMP 36.5; O2SAT 97; O2SAT 98
--- NOTE | 2023-03-15 08:40 | EXP.PULM.PN ---
Subjective *Date: 03/25/23 *Time: 14:33 Interval history: No acute respiratory events overnight. Patient with improved respiratory status Pulmonology Exam Inpatient Vital signs and Labs for Last 24 Hours: Temp Pulse Resp BP Pulse Ox O2 Del Method O2 Flow Rate 97.7 F 64 16 132/78 98 Nasal Cannula 2 03/15/23 08:00 03/15/23 08:00 03/15/23 08:00 03/15/23 08:00 03/15/23 08:00 03/15/23 08:00 03/15/23 08:00 Laboratory Results - last 24 hr 03/14/23 06:00: WBC 8.3, RBC 4.36, Hgb 13.6, Hct 41.0, MCV 94.0, MCH 31.2, MCHC 33.2, RDW 11.9, Plt Count 209, MPV 11.0 H, Neut % (Auto) 68.5, Lymph % (Auto) 19.9, [place] % (Auto) 9.8 H, Eos % (Auto) 1.5, Baso % (Auto) 0.2, Neut # (Auto) 5.7, Lymph # (Auto) 1.6, [place] # (Auto) 0.8, Eos # (Auto) 0.1, Baso # (Auto) 0.0 03/14/23 11:20: POC Glucose 321 H* 03/14/23 16:26: POC Glucose 237 H 03/14/23 20:29: POC Glucose 200 H 03/15/23 05:02: WBC 6.6, RBC 4.16 L, Hgb 13.0, Hct 38.6, MCV 92.8, MCH 31.3 H, MCHC 33.7, RDW 11.7, Plt Count 185, MPV 10.4, Neut % (Auto) 53.9, Lymph % (Auto) 32.7, [place] % (Auto) 10.0 H, Eos % (Auto) 2.3, Baso % (Auto) 0.8, Neut # (Auto) 3.6, Lymph # (Auto) 2.2, [place] # (Auto) 0.7, Eos # (Auto) 0.2, Baso # (Auto) 0.1, Sodium 133 L, Potassium 3.7, Chloride 98, Carbon Dioxide 33 H, Anion Gap 5.7, BUN 18 H, Creatinine 0.60, Estimated Creat Clear 33, Estimated GFR 96, Est GFR ( Amer) 116, Glucose 196 H D, Hemoglobin A1c 7.2 H, Calcium 8.9 03/15/23 05:15: POC Glucose 198 H I & O for Labs for Last 24 Hours: Intake & Output 03/12/23 03/13/23 03/14/23 03/15/23 23:59 23:59 23:59 23:59 Intake Total 1650 / 1650 360 / 360 Output Total 150 / 450 2600 / 2600 Balance -150 / -300 -950 / -950 360 / 360 Weight 231 lb 5 oz 231 lb 5 oz 227 lb 2 oz Constitutional: Present moderate distress Head: Present normocephalic and atraumatic ENT: Present normal exam, normal oropharynx and mucous membranes moist Neck: Present normal inspection and full ROM Respiratory: Present respiratory distress, crackles and able to speak in complete sentences; Absent wheezes or diminished air movement Cardiac: Present S1/S2, Tachycardia and radial pulses present GI: Present soft and distention; Absent tenderness or guarding Rectal (female): Present deferred (female): Present deferred Skin: Present intact; Absent cyanosis or jaundice Neuro: Present alert, awake and oriented x 3 Extremities: Present normal inspection and edema; Absent clubbing or cyanosis Psychiatric: Present normal affect and cooperative Assessment and Plan *Assessment and plan (1) Nodule of right lung: Status: Acute Category: Medical Code(s): R91.1 - Solitary pulmonary nodule (2) Acute and chronic respiratory failure with hypoxia: Status: Resolved Category: Medical Code(s): J96.21 - Acute and chronic respiratory failure with hypoxia (3) Pneumonia: Status: Acute Qualifiers: Laterality: right Lung location: lower lobe of lung Pneumonia type: due to unspecified organism Qualified Code(s): J18.9 - Pneumonia, unspecified organism Category: Medical Code(s): J18.9 - Pneumonia, unspecified organism Plan Ms. Roth is a 82-year-old female current smoker , > 30 PPD with documented history of COPD, diabetes, colon cancer status postresection peripheral neuropathy obesity presented to the ER with worsening respiratory generalized weakness abdominal nausea vomiting and bilateral lower extremity swelling. Upon further questionin patient admits worsening respiratory distress along with cough with no evidence of productive phlegm, denies any subjective fevers. Worsening LE swelling. CTA upon admission did not show any evidence of pulmonary embolism. Noted to have right lower lobe pleural-based nodularity concerning for mass/airspace disease. History of colon cancer 9 years ago status post chemotherapy did not remember any metastatic disease at diagnosis. CT abdomen als
--- NOTE | 2023-03-15 09:49 | EXP.DC.SUM ---
General Admission date:: 03/13/23 Discharge date: 03/15/23 HPI HPI HPI: This is an 82-year-old female who reports a history of type 2 diabetes, COPD, colon cancer status post resection, abdominal hernia, peripheral neuropathy, and obesity presenting to the ER for evaluation with concern for shortness of breath, generalized weakness, abdominal pain, nausea, and bilateral lower extremity swelling. She states the lower extremity swelling started approximately a week ago and has progressively worsened. She is on Lasix at home and reports compliance with this. She states that she developed the nausea, abdominal pain, and shortness of breath today. She states that it may be her hernias that is bothering her, but they have not changed in appearance. She denies any fevers, chills, vomiting, or other concerns. She does note constipation with last bowel movement being just before lunch today, but it was very hard for her. Nothing seems to make her symptoms better or worse. She is not typically on oxygen at home. Admitted for management and further work up Hospital Course Hospital Course Hospital Course: Tiffany Roth is an 82 year old female with a past medical history of type 2 dm, htncopd, colon cancer (she reports it was removed and subsequently she received 1 year of chemo approximately 10 years ago), abdominal hernia, peripheral neuropathy and obesity who presented to the ER with shortness of breath x 1 week. CTA chest revealed lung mass in the posterior right lobe. ct abd reveals adrenal nodule. #New R lung mass, 3.2cm #New L adrenal nodule, 1.7 x 1.1cm #history of colon cancer #lower extremity edemia #type 2 dm echocardiogram was ordered; will need to follow up on results Appreciate pulmonology Initiated Trelegy 100 inhaler continue DuoNebs every 6 hours on as-needed basis. Continuing levofloxacin to complete a total of 5-day course. Follow with final culture results If the right lower lobe mass proves to be tumor then further workup with a nonemergent adrenal CT or MRI may be indicated. if the lung mass does not prove to be tumor then consider 12 month follow up adrenal CT The patient will need a ct of the chest in 6 weeks to determine if the abnormal finding on CT chest is due to pneumonia or other etiology; subsequently she will need to see Pulmonology. She will need to f/u with her PCP in 1 week. She will discharge to home with home health services for pt/ot. Exam Data for Last 24 hours Vital signs and Labs for Last 24 Hours: Temp Pulse Resp BP Pulse Ox O2 Del Method O2 Flow Rate 97.7 F 64 16 132/78 98 Nasal Cannula 2 03/15/23 08:00 03/15/23 08:00 03/15/23 08:00 03/15/23 08:00 03/15/23 08:00 03/15/23 08:00 03/15/23 08:00 Laboratory Results - last 24 hr 03/14/23 06:00: WBC 8.3 03/14/23 11:20: POC Glucose 321 H* 03/14/23 16:26: POC Glucose 237 H 03/14/23 20:29: POC Glucose 200 H 03/15/23 05:02: WBC 6.6, RBC 4.16 L, Hgb 13.0, Hct 38.6, MCV 92.8, MCH 31.3 H, MCHC 33.7, RDW 11.7, Plt Count 185, MPV 10.4, Neut % (Auto) 53.9, Lymph % (Auto) 32.7, [place] % (Auto) 10.0 H, Eos % (Auto) 2.3, Baso % (Auto) 0.8, Neut # (Auto) 3.6, Lymph # (Auto) 2.2, [place] # (Auto) 0.7, Eos # (Auto) 0.2, Baso # (Auto) 0.1, Sodium 133 L, Potassium 3.7, Chloride 98, Carbon Dioxide 33 H, Anion Gap 5.7, BUN 18 H, Creatinine 0.60, Estimated Creat Clear 33, Estimated GFR 96, Est GFR ( Amer) 116, Glucose 196 H D, Hemoglobin A1c 7.2 H, Calcium 8.9 03/15/23 05:15: POC Glucose 198 H I & O for Last 24 hours: Intake & Output 03/12/23 03/13/23 03/14/23 03/15/23 23:59 23:59 23:59 23:59 Intake Total 1650 / 1650 360 / 360 Output Total 150 / 450 2600 / 2600 0 / 0 Balance -150 / -300 -950 / -950 360 / 360 Weight 104.922 kg 104.922 kg 103.022 kg Constitutional Constitutional: no acute distress *Routine HEENT Exam Head: Present normocephalic Eye: Present EOMI and PERRL ENT: Present mucous membranes moist *Routine Neck Exam Neck: Pr
--- NOTE | 2023-03-15 09:54 | HMH.PHAINT1 ---
Pharmacy Intervention Comments: Discharge medications were reviewed with patient -Levofloxacin (told to watch for N/V/D) -Trelegy (told to watch for headaches) Isauro Prado, PharmD student
[2023-03-15 11:03] LABS: POC Glucose,Bedside 295 (70-110)
--- NOTE | 2023-03-18 14:16 | CARE MANAGER ---
Attempted post-discharge phone interview, no answer.
--- NOTE | 2023-03-19 13:23 | CARE MANAGER ---
Attempted to contact patient x 2 related to hospital discharge. No VM option. MACARIO Hudson
== END 2023-03-15 11:40 | disposition home health service (06) ==
LOC: ER 19:50 → 2ND 20:35
PROVIDERS: Nurse Practitioner Family; Ophthalmology; Admitting Provider Internal Medicine; Emergency Provider Emergency Medicine; Visit Provider Internal Medicine
DX: R06.02 Shortness of breath (principal); R53.1 Weakness; R60.0 Localized edema; E11.42 Type 2 diabetes mellitus with diabetic polyneuropathy; Z79.4 Long term (current) use of insulin; I10 Essential (primary) hypertension; E78.5 Hyperlipidemia, unspecified; E66.9 Obesity, unspecified; R91.1 Solitary pulmonary nodule; J96.21 Acute and chronic respiratory failure with hypoxia; J18.9 Pneumonia, unspecified organism; Z79.899 Other long term (current) drug therapy; Z68.41 Body mass index [BMI] 40.0-44.9, adult
CPT/HCPCS: 36415; 71045; 71275; 74177; 80048; 80053; 81001; 82962; 83036; 83605; 83735; 83880; 84484; 85025; 85610; 93005; 93306; 94640; 94761; 97163; 97165; 99285; G0378; J1956; Q9967

== ENCOUNTER → 2023-04-26 14:30 | Outpatient (CLI) | payer MEDICARE, MEDICAID, SELFPAY ==
--- NOTE | 2023-04-26 14:34 | CT_ITS ---
FINAL REPORT TECHNIQUE: Axial images were obtained through the chest without contrast. CLINICAL HISTORY: Right lower lobe lung mass seen on prior study COMPARISON: CTA chest 03/13/2023 FINDINGS: There is streak artifact from orthopedic hardware in the distal right humerus. The heart size is normal. There are dense coronary artery calcifications. There is no pericardial or pleural effusion. There is a dominant mass in the inferior right lower lobe extending to the diaphragm. Focus measures 3.3 x 2.7 cm. It is noncalcified and appears similar in size to the prior study. Limited images of the upper abdomen demonstrate no acute findings. The gallbladder is surgically absent. IMPRESSION: 3.3 x 2.7 cm indeterminate mass right lower lobe. Consider PET or needle sampling. Reviewed, Interpreted and Dictated by Kurt Martinez MD Transcribed by Juanita Zuñiga Authenticated and [facility]
== END ==
PROVIDERS: PCP Nurse Practitioner Family; Visit Provider Nurse Practitioner Family
DX: R91.1 Solitary pulmonary nodule (principal)
CPT/HCPCS: 71250

== ENCOUNTER 2024-01-13 11:39 | Emergency (ER) | payer MEDICARE, SELFPAY ==
[2024-01-13 11:39] VITALS: BP 141/57; PULSE 64; RESP 13; TEMP 36.7; O2SAT 93; BMI 32.3
--- NOTE | 2024-01-13 11:41 | ECG_ITS ---
APPROVED REPORT Exam: Resting ECG HR:65 bpm ECG Measurements Heart Rate 65 AXES UT 172 P 70 QRSd 92 QRS -5 QT 374 T 44 QTc 386 Conclusion SINUS RHYTHM NONSPECIFIC ST & T-WAVE ABNORMALITY BORDERLINE ECG UNCONFIRMED REPORT Electronically signed by : Bandar Resendez, 01/13/2024 15:09:12
--- NOTE | 2024-01-13 11:59 | CT_ITS ---
FINAL REPORT TECHNIQUE: After the administration of oral and intravenous contrast, axial images were obtained through the abdomen and pelvis by computed tomography. The study was performed with techniques to keep radiation dose as low as reasonably achievable, (ALARA). Individual dose reduction techniques using automated exposure control or adjustment of mA and/or kV according to the patient's size were employed. CLINICAL HISTORY: h/o colon/lung ca, cp and abd pain FINDINGS: Abdomen: There is mild to moderate intrahepatic and extrahepatic ductal dilatation which is more conspicuous on the previous exam. No obvious masses seen. The gallbladder is absent. The spleen is unremarkable. The pancreas is atrophic. Previously seen nodules in the adrenal glands appear stable. The aorta is normal in caliber. There is no free fluid or adenopathy. Pelvis: There is streak artifact from orthopedic hardware in the left femur. There is a moderate ventral hernia containing a segment of colon. Hernia defect measures 9 cm in transverse dimension. Postoperative changes are seen in the right anterior pelvic wall with a fat-containing hernia at the medial margin of the mesh. This appears stable compared to prior exam. The uterus is present and lies eccentric to the left. The appendix is not identified. The urinary bladder is unremarkable. There is no free fluid or adenopathy. IMPRESSION: Interval increase in intrahepatic and extrahepatic ductal dilatation. Etiology is unclear. Correlation with labs is recommended. Stable adrenal nodules. Stable ventral hernia containing a segment of colon. Reviewed, Interpreted and Dictated by Kurt Martinez MD Transcribed by Ava Siddiqui Authenticated and . [facility]
--- NOTE | 2024-01-13 11:59 | CT_ITS ---
FINAL REPORT TECHNIQUE: The patient was injected with IV contrast. Axial images were obtained through the chest in a PE protocol. 3-D reconstruction images were also performed. Individualized dose reduction techniques using automated exposure control or adjustment of the MA and/or KV according to patient's size were employed. CLINICAL HISTORY: h/o colon/lung ca, cp and abd pain COMPARISON: Chest CT dated 04/26/2023 and 03/13/2023 FINDINGS: Mediastinal vasculature is adequately opacified. No pulmonary artery filling defects are identified to suggest PE. There is no aortic dissection. There is no axillary adenopathy. There is no hilar or mediastinal adenopathy. The heart size is normal. There are moderate coronary artery calcifications. There is no pericardial or pleural effusion. Abnormal opacity at the right lung base is slightly larger and more irregular than on the previous exam probably due to consolidation. An underlying mass was previously seen at this location. There is a stable 4 mm nodule in the periphery of the right midlung seen on image 83 of series 5. IMPRESSION: No pulmonary embolus or dissection. Abnormal opacity in the right lung base is slightly larger and more irregular than on the previous exam probably due to consolidation. Stable 4 mm nodule in the periphery of the right midlung. Reviewed, Interpreted and Dictated by Kurt Martinez MD Transcribed by Ava Siddiqui Authenticated and [facility]
[2024-01-13 12:00] VITALS: BP 125/65; PULSE 61; O2SAT 93
--- NOTE | 2024-01-13 12:01 | ED_ITS ---
Discharge Plan Disposition Patient Disposition: Home, Self-Care Prescriptions Prescriptions: New ondansetron 4 mg tablet,disintegrating 4 mg PO Q6H PRN (Reason: nausea and vomiting) 5 Days Qty: 20 0RF No Action aspirin 81 mg tablet,delayed release (DR/EC) 81 mg PO DAILY omeprazole 20 mg capsule,delayed release(DR/EC) 20 mg PO DAILY Patient Comments: TAKE 1 CAPSULE (20 MG) BY ORAL ROUTE ONCE DAILY 30 MINUTES TO 1 HOUR BEFORE A MEAL NEEDED HEARTBURN insulin asp prt-insulin aspart 100 unit/mL (70-30) solution 45 unit SQ DAILY Patient Comments: INJECT 45 UNITS IN THE MORNING AND 42 UNITS IN THE EVENING lisinopril 30 mg tablet 30 mg PO DAILY rosuvastatin 10 mg tablet 10 mg PO DAILY metoprolol succinate 100 mg tablet extended release 24 hr 1 tab PO DAILY Vitamin B-6 50 mg capsule 50 mg PO DAILY tramadol 50 mg Tablet 50 mg PO BID PRN (Reason: Pain (Scale Score 4-6)) furosemide 20 mg tablet 20 mg PO DAILY ergocalciferol (vitamin D2) [Vitamin D2] 1,250 mcg (50,000 unit) capsule 1,250 mcg PO WEEKLY Rx Instructions: SATURDAY gabapentin 600 mg tablet 600 mg PO TID ipratropium-albuterol 0.5 mg-3 mg(2.5 mg base)/3 mL Solution For Nebulization 3 ml INHALATION Q6H PRN (Reason: Shortness Of Breath) hydrochlorothiazide 25 mg tablet 25 mg PO DAILY albuterol sulfate 90 mcg/actuation HFA aerosol inhaler 1 inh INHALATION Q6H PRN (Reason: Shortness Of Breath) Trelegy Ellipta 100-62.5-25 mcg Blister With Device 1 inh inhalation DAILY Qty: 1 1RF levofloxacin 750 mg tablet 750 mg PO DAILY Qty: 5 0RF Referrals Follow up/Referrals: Provider,Referral, MD [Referring] - See instructions Activity Restrictions/Add. Instructions Additional Instructions/Restrictions: No emergent medical condition identified today. However on the CAT scan of her chest the opacity in the right lung is a little bit larger and more regular than previously seen on CAT scan please continue to follow-up with your cancer doctors as instructed prior. Also on CAT scan of her abdomen there has been an interval increase in intra and extrahepatic ductal dilation. Exact cause of this is unclear. Labs were unremarkable. However it may be worth discussing with your primary care doctor whether or not you need to have an ERCP or an MRCP to further evaluate this. No definitive cancer noted on CT scan. Clinical Impressions Clinical Impression: Chest pain, Abdominal pain Discharge ED Provider: Kayleen Resendez HPI General Chief Complaint: Weakness Stated Complaint: Chest Pain Time Seen by Provider: 01/13/24 11:40 History of Present Illness HPI narrative: Patient is an 83-year-old female with a history of colon and lung cancer presents today with chest pain abdominal pain and nausea. Pain began earlier today primary located on the left lateral aspect of the upper and lower abdomen. However she did have some chest pain that lasted a few minutes. No significant shortness of breath she has COPD does not wear oxygen at home ox saturations normal in the low 90s. Of note she recently completed radiation therapy for lung cancer. She has had a colon resection decades in the past and has been in remission for colon cancer. No blood in her stool no diarrhea. No fevers or chills that she is aware of. She is still nauseated with primarily abdominal pain right now. Related Data Home Medications Medication Instructions Recorded Confirmed lisinopril 30 mg tablet 30 mg PO DAILY Blood Pressure 08/13/19 07/17/23 metoprolol succinate 100 mg 1 tab PO DAILY Blood Pressure 08/13/19 07/17/23 tablet,extended release 24 hr pyridoxine (vitamin B6) 50 mg 50 mg PO DAILY Diet supplement 08/13/19 07/17/23 capsule (Vitamin B-6) rosuvastatin 10 mg tablet 10 mg PO DAILY Cholesterol 08/13/19 07/17/23 aspirin 81 mg tablet,delayed 81 mg PO DAILY Heart Health 07/13/20 07/17/23 release insulin aspar prt-insulin aspart 45 unit SQ DAILY Diabetes 11/08/20 07/17/23 100 unit/mL (70-30) subcutaneous soln omeprazole 20 mg capsule,delayed 20 mg PO DAILY GERD 11/08/20 07/17/23 release ergocalciferol (vitamin D2) 1,250 1,250 mcg PO WEEKLY Supplement 03/13/23 07/17/23 mcg (50,000 unit) capsule (Vitamin D2) furosemide 20 mg tablet 20 mg PO DAILY Diuretic 03/13/23 07/17/23 tramadol 50 mg tablet 50 mg PO BID PRN Pain (Scale Score 03/13/23 07/17/23 4-6) albuterol sulfate 90 mcg/actuation 1 inh inhalation Q6H PRN Shortness 03/14/23 07/17/23 aerosol inhaler Of Breath gabapentin 600 mg tablet 600 mg PO TID Pain 03/14/23 07/17/23 hydrochlorothiazide 25 mg tablet 25 mg PO DAILY Blood Pressure 03/14/23 07/17/23 ipratropium 0.5 mg-albuterol 3 mg 3 ml inhalation Q6H PRN Shortness 03/14/23 07/17/23 (2.5 mg base)/3 mL nebulization Of Breath soln Previous Rx's Medication Instructions Recorded fluticasone fur. 100 mcg-umeclid 1 inh inhalation DAILY #1 ea 03/15/23 62.5 mcg-vilant 25 mcg inhalat.powder (Trelegy Ellipta) levofloxacin 750 mg tablet 750 mg PO DAILY #5 tabs 03/15/23 ondansetron 4 mg disintegrating 4 mg PO Q6H PRN nausea and 01/13/24 tablet vomiting 5 days #20 tabs Allergies Allergy/AdvReac Type Severity Reaction Status Date / Time acetaminophen [From Lortab] Allergy Unknown BLACK OUT Verified 07/17/23 13:33 hydrocodone [From Lortab] Allergy Unknown BLACK OUT Verified 07/17/23 13:33 [facility] Disclaimer: The information contained in this section may have been updated after the patient was seen, as this information can be updated by other users. Medical History Acute and chronic respiratory failure with hypoxia Cataract Colon cancer Diabetes mellitus, type 2 Gallstone Nodule of right lung Pneumonia Right arm fracture Surgical History History of cholecystectomy History of resection of large bowel Hx colon Cancer History of total left knee replacement Social History Smoking Status: Current every day smoker alcohol intake: never current occupational status: retired Travel in the last 8 weeks: None ROS Obtained: Yes All systems reviewed & no additional complaints except as documented Physical Exam General General appearance: in distress (Appears uncomfortable) Respiratory Respiratory exam: Present normal lung sounds bilaterally; Absent respiratory distress Cardiovascular Cardiovascular exam: Present regular rate and normal rhythm Abdominal Exam Abdominal exam: Present soft and distention (Abdomen is distended there is a midline incisional hernia that is soft easily reducible however she is tender left upper and left lower quadrants of her abdomen no rebound or guarding) Neurological Exam Neurological exam: Present alert and oriented X3 HEART Score HEART Score HEART Score assessment performed?: Yes History (anamnesis): Slightly suspicious ECG: Non-specific disturbance Age: >65 years Risk factors: 1-2 risk factors Troponin: </= normal limit HEART Score: 4 Critical Care Critical Care Time Critical Care Time: No Medical Decision Making Jonathan Inquiry Pt receiving controlled substance: No Vital Signs Vital Signs: 01/13/24 11:39 01/13/24 12:00 01/13/24 13:01 Temperature 98.1 F Temperature Source Oral Pulse Rate 61 70 Pulse Rate [Left Radial] 64 Respiratory Rate 13 20 Blood Pressure 125/65 147/118 H Blood Pressure [Right Arm] 141/57 H Blood Pressure Mean 125 Blood Pressure Mean [Right Arm] 85 02 Sat by Pulse Oximetry 93 L 93 L 94 L Oxygen Delivery Method Room Air Room Air Room Air 01/13/24 13:31 01/13/24 13:45 Temperature Temperature Source Pulse Rate 59 L 58 L Pulse Rate [Left Radial] Respiratory Rate 18 Blood Pressure 134/65 134/65 Blood Pressure [Right Arm] Blood Pressure Mean 103 Blood Pressure Mean [Right Arm] 02 Sat by Pulse Oximetry 97 94 L Oxygen Delivery Method Room Air Lab Data Lab results reviewed: Yes I reviewed the patient's lab results. Labs: Lab Results 01/13/24 11:40: WBC 7.1, RBC 4.13 L, Hgb 14.5, Hct 39.9, MCV 96.6, MCH 35.2 H, M CHC 36.4 H, RDW 13.6, Plt Count 178, MPV 8.0, Neut % (Auto) 66.6, Lymph % (Auto) 24.3, [place] % (Auto) 6.1, Eos % (Auto) 1.9, Baso % (Auto) 1.0, Neut # (Auto) 4.7, Lymph # (Auto) 1.7, [place] # (Auto) 0.4, Eos # (Auto) 0.1, Baso # (Auto) 0.1, Sodium 140, Potassium 3.9, Chloride 100, Carbon Dioxide 34 H, Anion Gap 9.9, BUN 15, Creatinine 0.80, Estimated Creat Clear 62, Estimated GFR 69, Est GFR ( Amer) 83, Glucose 169 H, Calcium 9.4, Total Bilirubin 0.7, AST 33, ALT 17, Alkaline Phosphatase 61, Troponin I < 0.01, Total Protein 6.6, Albumin 4.0, Globulin 2.6, Albumin/Globulin Ratio 1.5, Lipase 46 01/13/24 11:40 01/13/24 11:40 Response Orders (Tests/Meds): ED MEDICATIONS Generic Name Dose Route Start Last Admin Trade Name Freq PRN Reason Stop Dose Admin Sodium Chloride 10 ml 01/13/24 12:47 01/13/24 12:48 Sodium Chloride 0.9% 10ml Syr (Rad Only) IV 02/12/24 12:46 10 ml NEEDED PRN Administration Maintain IV Site Discontinued Medications Generic Name Dose Route Start Last Admin Trade Name Freq PRN Reason Stop Dose Admin Lactated Ringer's 1,000 mls @ 999 mls/hr 01/13/24 12:00 01/13/24 12:16 Lactated Ringer's 1000 Ml Bag IV 01/13/24 13:00 999 mls/hr .Q1H1M GAUDENCIO Administration Iopamidol 70 ml 01/13/24 12:47 01/13/24 12:48 Iopamidol-370 (76%);100ml Bottle IV 01/13/24 12:48 70 ml ONCE ONE Administration Morphine Sulfate 4 mg 01/13/24 11:59 01/13/24 12:17 Morphine 4mg/Ml Syringe IV 01/13/24 12:00 4 mg ONCE ONE Administration Ondansetron HCl 4 mg 01/13/24 11:59 01/13/24 12:17 Ondansetron 4mg/2ml Vial IV 01/13/24 12:00 4 mg ONCE ONE Administration Sodium Chloride 50 ml 01/13/24 12:47 01/13/24 12:48 0.9 % Sodium Chloride 50 Ml Vial IV 01/13/24 12:48 50 ml ONCE ONE Administration ORDERS Category Date Time Status CT abdomen pelvis w con Stat Cat Scan 01/13/24 11:[address] angio chest PE protocol Stat Cat Scan 01/13/24 11:59 Taken CBC w/Auto Diff [Complete Blood Count Auto Diff] Stat Lab 01/13/24 11:40 Completed CMP [Comprehensive Metabolic Panel] Stat Lab 01/13/24 11:40 Completed Lactic Acid Stat Lab 01/13/24 11:59 Ordered Lipase Stat Lab 01/13/24 11:40 Completed Trop I [Troponin I] Stat Lab 01/13/24 11:40 Completed Troponin I Q3H Lab 01/13/24 15:00 Ordered Troponin I Q3H Lab 01/13/24 18:00 Ordered ECG Data Tracing #1: Attestation: I reviewed this ECG and interpreted as documented below: ECG Narrative: Ventricular rate of 65 sinus rhythm no significant ST elevations or depressions there is indeterminate axis no acute ischemic changes or conduction abnormalities noted MDM Narrative Medical Decision Narrative: 83-year-old with above history and physical she has chest pain but primarily abdominal pain and nausea. Has a history of 2 primary malignancies recurrence and worsening of this malignancy is on the differential we will do a CT scan of patient's abdomen with contrast and CT PE. Pulmonary embolism is possible as his myocarditis acute coronary syndrome etc. other surgical pathology in the abdomen such as colitis diverticulitis etc. are on the differential as well. IV fluids pain medicine nausea medicine have been administered will reassess. Reassessment patient feeling better vitals unremarkable. Oxygen saturations in the upper 80s and lower 90s she does have COPD and oxygen at home she has been advised to continue to administer oxygen particular at night. No definitive cardiopulmonary emergency or intra-abdominal emergency. In the location where her recent lung cancer was identified the opacity is little bit larger and more consolidated than it has been but this was tissue confirmed to be cancer does not appear to be infectious at this point she will continue to follow-up with her cancer doctors regarding this. On the CT scan of her abdomen she has interval increase in intra and extrahepatic ductal dilatation but no obvious masses this per my own personal interpretation on the CT scans as well as radiology read. Labs are unremarkable no definitive obstructive cause. However I have advised that she follow-up with primary care doctor and/or wine master for an ERCP or MRCP. Patient was discharged in a stable condition with no definitive emergent medical condition identified. Family is agreeable to this plan and understand follow-up instructions. Return precautions also emphasized if anything gets worse.
[2024-01-13 12:12] LABS: Chloride 100 mmol/L (98-107); Potassium 3.9 mmoL/L (3.5-5.1); Sodium 140 mmol/L (136-145)
[2024-01-13 12:14] LABS: Alanine Aminotransferase 17 U/L (12-78); Aspartate Amino Transferase 33 U/L (14-36); Blood Urea Nitrogen 15 mg/dl (7-17); Creatinine Clearance Estimated 62 mL/min (50-200); Estimated Glomerular Filt Rate 69 ml/min (>60); GFR (African American) 83 ML/MIN (>60)
[2024-01-13 12:15] LABS: Albumin/Globulin Ratio 1.5 (1.1-1.8); Alkaline Phosphatase 61 U/L (38-126); Anion Gap 9.9 mEq/L (5-15); Bilirubin,Total 0.7 mg/dl (0.2-1.3); Calcium 9.4 mg/dl (8.4-10.2); Carbon Dioxide 34 mmol/L (22.0-30.0); Globulin 2.6 g/dL (1.3-3.2); Glucose 169 mg/dl (74-100); Lipase 46 U/L (23-300); Total Protein,Serum 6.6 g/dl (6.3-8.2)
[2024-01-13] MEDS: LACTATED RINGERS 1000ML 1,000 ML 999 ML IV (12:16)
[2024-01-13] MEDS: MORPHINE 4MG/ML SYRINGE 4 MG IV (12:17)
[2024-01-13] MEDS: ONDANSETRON 4MG/2ML VIAL 4 MG IV (12:17)
[2024-01-13 12:48] LABS: Troponin I < 0.01 ng/ml (0.00-0.034)
[2024-01-13] MEDS: IOPAMIDOL-370 (76%);100ML BOTTLE 70 ML IV (12:48)
[2024-01-13] MEDS: 0.9 % SODIUM CHLORIDE 50 ML VIAL IV (12:48)
[2024-01-13] MEDS: SODIUM CHLORIDE 0.9% 10ML SYR (RAD ONLY) 10 ML IV (12:48)
[2024-01-13 13:01] VITALS: BP 147/118; PULSE 70; RESP 20; O2SAT 94
[2024-01-13 13:01] LABS: Basophils # 0.1 K/mm3 (0-0.2); Eosinophils # 0.1 K/mm3 (0.0-0.4); Eosinophils % 1.9 % (0.1-12.0); Hematocrit 39.9 % (37.0-47.0); Hemoglobin 14.5 g/dL (12.2-16.2); Lymphocytes # 1.7 K/mm3 (0.7-4.5); Lymphocytes % 24.3 % (10-50); Mean Corpuscular HGB Conc 36.4 g/dL (31.8-35.4); Mean Corpuscular Hemoglobin 35.2 pg (27.0-31.2); Mean Corpuscular Volume 96.6 fl (81-99); Monocytes # 0.4 K/mm3 (0.1-1.0); Monocytes % 6.1 % (1.7-9.3); Neutrophils # 4.7 K/mm3 (1.8-7.8); Neutrophils % 66.6 % (37.0-80.0); Platelet Count 178 K/mm3 (142-424); Red Blood Count 4.13 M/mm3 (4.20-5.40); Red Cell Distribution Width 13.6 % (11.5-17.5); White Blood Count 7.1 K/mm3 (4.8-10.8)
[2024-01-13 13:31] VITALS: BP 134/65; PULSE 59; RESP 18; O2SAT 97
[2024-01-13 13:45] VITALS: BP 134/65; PULSE 58; O2SAT 94
[2024-01-13 14:27] VITALS: BP 134/68; PULSE 58; RESP 16; TEMP 36.7
== END 2024-01-13 14:28 | disposition home or self-care (01) ==
PROVIDERS: Emergency Provider Student in an Organized Health Care Education/Training Program; PCP Nurse Practitioner Family
DX: R07.9 Chest pain, unspecified (principal); R10.12 Left upper quadrant pain; R10.32 Left lower quadrant pain; J44.9 Chronic obstructive pulmonary disease, unspecified; E11.9 Type 2 diabetes mellitus without complications; Z87.891 Personal history of nicotine dependence; Z85.118 Personal history of other malignant neoplasm of bronchus and lung; Z85.038 Personal history of other malignant neoplasm of large intestine; Z92.3 Personal history of irradiation; R11.0 Nausea; Z79.4 Long term (current) use of insulin
CPT/HCPCS: 71275; 74177; 80053; 83690; 84484; 85025; 93005; 96361; 96374; 96375; 99285; J2405; Q9967

== ENCOUNTER 2024-01-23 02:51 | Emergency (ER) | payer MEDICARE, SELFPAY ==
[2024-01-23 02:51] VITALS: BP 154/92; PULSE 66; RESP 19; TEMP 36.8; O2SAT 94; BMI 38.4
--- NOTE | 2024-01-23 02:58 | PC.NURSE ---
Per EMS patient FSBS 179. She wears 1L/NC at home while sleeping; however, they placed her on 2L/NC in route. Patient taken off of O2 during triage. VSS, NAD otherwise
--- NOTE | 2024-01-23 02:59 | ECG_ITS ---
APPROVED REPORT Exam: Resting ECG HR:64 bpm ECG Measurements Heart Rate 64 AXES FL 178 P 71 QRSd 95 QRS -11 QT 403 T 40 QTc 413 Conclusion SINUS RHYTHM MODERATE VOLTAGE CRITERIA FOR LVH, CONSIDER NORMAL VARIANT [MEETS CRITERIA IN ONE OF: R(aVL), S(V1), R(V5), R(V5/V6)+S(V1)] BORDERLINE ECG UNCONFIRMED REPORT Electronically signed by : ANA GONZALEZ, 01/23/2024 06:34:50
--- NOTE | 2024-01-23 02:59 | CT_ITS ---
PROCEDURE INFORMATION: Exam: CTA Abdomen and Pelvis With Contrast Exam date and time: 01/23/2024 3:39 AM Age: 83 years old Clinical indication: Abdominal pain; Additional info: Severe abd pain TECHNIQUE: Imaging protocol: Computed tomographic angiography of the abdomen and pelvis with contrast. Exam focused on the arteries. 3D rendering (Not supervised by radiologist): MIP and/or 3D reconstructed images were created by the technologist. Radiation optimization: All CT scans at this facility use at least one of these dose optimization techniques: automated exposure control; mA and/or kV adjustment per patient size (includes targeted exams where dose is matched to clinical indication); or iterative reconstruction. Contrast material: ISOVUE; Contrast volume: 100 ml; Contrast route: INTRAVENOUS (IV); COMPARISON: CT ABDOMEN PELVIS W CON 01/13/2024 12:37 PM FINDINGS: Tubes, catheters and devices: Prior ventral hernia repair using prosthetic material. Lungs: Some dependent atelectasis versus infiltrate is seen in the right lung base. Heart: Moderate cardiomegaly. Aorta: No aortic aneurysm. No aortic dissection. Celiac trunk and mesenteric arteries: No occlusion or significant stenosis. Renal arteries: No occlusion or significant stenosis. Right iliac arteries: No occlusion or significant stenosis. Left iliac arteries: No occlusion or significant stenosis. Liver: No mass. Gallbladder and bile ducts: Cholecystectomy. Pancreas: Unremarkable. No mass. No ductal dilation. Spleen: Unremarkable. No splenomegaly. Adrenal glands: Mild thickening of the adrenal glands is unchanged. Kidneys and ureters: Unremarkable. No solid mass. No hydronephrosis. Stomach and bowel: Extensive diverticulosis. Appendix: No evidence of appendicitis. Intraperitoneal space: Unremarkable. No free air. No significant fluid collection. Lymph nodes: Unremarkable. No enlarged lymph nodes. Urinary bladder: Unremarkable. No mass. Reproductive: Unremarkable as visualized. Bones/joints: ORIF left femur. Soft tissues: Ventral hernia containing a portion of the transverse colon is unchanged in appearance. IMPRESSION: 1. No acute process identified to explain the patient's symptoms. 2. Ventral hernia containing nonobstructed portion of the transverse colon, unchanged in appearance from prior. 3. Right basilar atelectasis versus infiltrate. 4. Cholecystectomy. 5. Stable adrenal thickening present bilaterally.
[2024-01-23 03:00] VITALS: BP 149/82; PULSE 68; RESP 15; O2SAT 90
[2024-01-23] MEDS: ONDANSETRON 4MG/2ML VIAL 4 MG IV (03:14)
[2024-01-23 03:17] LABS: Microscopic, Urine URINE MICROSCOPIC (MICROSCOPIC)
[2024-01-23 03:21] LABS: Appearance,Urine CLEAR (Clear); Bilirubin,Urine Negative (Negative); Blood, Urine Negative (Negative); Color,Urine YELLOW (Yellow); Glucose,Urine (UA) Negative (Negative); Ketones,Urine Negative (Negative); Leukocyte Esterase,Urine Negative (Negative); Nitrate,Urine Negative (Negative); PH,Urine 7.5 (5.0-8.5); Protein,Urine Negative (Negative); Specific Gravity, Urine 1.015 (1.005-1.030)
[2024-01-23 03:22] LABS: Basophils # 0.1 K/mm3 (0-0.2); Basophils % 1.1 % (0.1-2.0); Eosinophils # 0.2 K/mm3 (0.0-0.4); Eosinophils % 2.7 % (0.1-12.0); Hematocrit 42.6 % (37.0-47.0); Hemoglobin 13.5 g/dL (12.2-16.2); Lymphocytes # 1.5 K/mm3 (0.7-4.5); Lymphocytes % 24.2 % (10-50); Mean Corpuscular HGB Conc 31.8 g/dL (31.8-35.4); Mean Corpuscular Volume 97.6 fl (81-99); Monocytes # 0.4 K/mm3 (0.1-1.0); Monocytes % 6.8 % (1.7-9.3); Neutrophils % 65.3 % (37.0-80.0); Platelet Count 151 K/mm3 (142-424); Red Blood Count 4.37 M/mm3 (4.20-5.40); Red Cell Distribution Width 13.5 % (11.5-17.5); White Blood Count 6.1 K/mm3 (4.8-10.8)
[2024-01-23 03:23] LABS: Chloride 99 mmol/L (98-107)
[2024-01-23 03:24] LABS: Potassium 3.8 mmoL/L (3.5-5.1); Sodium 138 mmol/L (136-145)
[2024-01-23 03:26] LABS: Alanine Aminotransferase 16 U/L (12-78); Aspartate Amino Transferase 31 U/L (14-36); Bilirubin,Total 0.3 mg/dl (0.2-1.3); Blood Urea Nitrogen 17 mg/dl (7-17); Creatinine Clearance Estimated 72 mL/min (50-200); Estimated Glomerular Filt Rate 80 ml/min (>60); GFR (African American) 97 ML/MIN (>60); Lactic Acid 1.1 mmol/L (0.7-2.1)
[2024-01-23 03:27] LABS: Albumin Level 3.6 g/dl (3.5-5.0); Albumin/Globulin Ratio 1.5 (1.1-1.8); Alkaline Phosphatase 60 U/L (38-126); Anion Gap 8.8 mEq/L (5-15); Carbon Dioxide 34 mmol/L (22.0-30.0); Globulin 2.4 g/dL (1.3-3.2); Glucose 188 mg/dl (74-100); Lipase 164 U/L (23-300)
[2024-01-23 03:34] LABS: Squamous Epithelial Cell,Urine Occasional #/hpf (0-5); WBC,Urine Occasional #/hpf (0-3)
[2024-01-23] MEDS: IOPAMIDOL-370 (76%);100ML BOTTLE 100 ML IV (03:47)
[2024-01-23] MEDS: SODIUM CHLORIDE 0.9% 10ML SYR (RAD ONLY) 10 ML IV (03:47)
[2024-01-23] MEDS: 0.9 % SODIUM CHLORIDE 50 ML VIAL IV (03:47)
--- NOTE | 2024-01-23 04:26 | ED_ITS ---
Discharge Plan Disposition Patient Disposition: Home, Self-Care Prescriptions Prescriptions: No Action furosemide 40 mg tablet 40 mg PO DAILY gabapentin 600 mg tablet 600 mg PO BID metoprolol succinate 100 mg tablet extended release 24 hr 100 mg PO DAILY aspirin 81 mg tablet,delayed release (DR/EC) 81 mg PO DAILY potassium chloride 20 mEq tablet,ER particles/crystals 20 meq PO DAILY lisinopril 30 mg tablet 30 mg PO DAILY dorzolamide-timolol 22.3-6.8 mg/mL drops 1 drp Eye-Both HS ergocalciferol (vitamin D2) [Vitamin D2] 1,250 mcg (50,000 unit) capsule 1,250 mcg PO WEEKLY insulin asp prt-insulin aspart [Novolog Mix 70-30FlexPen U-100] 100 unit/mL (70-30) insulin pen 40 unit SQ BIDWMEAL Patient Comments: Inject 40 units twice a day by subcutaneous route. rosuvastatin 10 mg tablet 10 mg PO HS Referrals Follow up/Referrals: Elvie Murdock [Primary Care Provider] - See instructions Activity Restrictions/Add. Instructions Additional Instructions/Restrictions: Please follow-up with your primary care provider. Please return to the emergency department if you develop any new or worsening symptoms or become concerned for your health. Clinical Impressions Clinical Impression: Abdominal pain Qualifiers: Abdominal location: generalized Qualified Code(s): R10.84 - Generalized abdominal pain Instructions Patient Instructions: DI for Acute Abdominal Pain Discharge ED Provider: Adelso Diehl General Adult HPI General Chief complaint: Abdominal Pain Stated complaint: Abdominal Pain Time Seen by Provider: 01/23/24 02:55 Mode of Arrival: EMS Source of Information: Patient and EMS Limitations: No Limitations Description of Symptoms (Recalled from ER Triage Doc. by RN): 83 F presents from home via EMS with c/o mid abdominal pain that started prior to her calling 911. Patient associates nausea, dizziness, and almost passing out while calling for EMS. Patient states her symptoms are better now since arriving. History of Present Illness HPI narrative: 83-year-old female presents for severe abdominal pain. She has history of obesity, diabetes, hypertension hyperlipidemia, abdominal wall hernia. She was seen here a week ago for chest pain and abdominal pain. She reports that she had sudden severe midline abdominal pain that woke her up from sleep. By time she arrived to the ER she felt much much better. She reports mild tenderness over her abdominal hernia site. Denies any recent fever or illness. Reports some urinary symptoms. Related Data Home Medications Medication Instructions Recorded Confirmed aspirin 81 mg tablet,delayed 81 mg PO DAILY 01/23/24 01/23/24 release dorzolamide 22.3 mg-timolol 6.8 1 drp Eye-Both HS 01/23/24 01/23/24 mg/mL eye drops ergocalciferol (vitamin D2) 1,250 1,250 mcg PO WEEKLY 01/23/24 01/23/24 mcg (50,000 unit) capsule (Vitamin D2) furosemide 40 mg tablet 40 mg PO DAILY 01/23/24 01/23/24 gabapentin 600 mg tablet 600 mg PO BID 01/23/24 01/23/24 insulin aspar prot-insulin aspart 40 unit SQ BIDWMEAL 01/23/24 01/23/24 100 unit/mL (70-30) subcutaneous pen (Novolog Mix 70-30FlexPen U-100) lisinopril 30 mg tablet 30 mg PO DAILY 01/23/24 01/23/24 metoprolol succinate 100 mg 100 mg PO DAILY 01/23/24 01/23/24 tablet,extended release 24 hr potassium chloride 20 mEq 20 meq PO DAILY 01/23/24 01/23/24 tablet,extended release(part/cryst) rosuvastatin 10 mg tablet 10 mg PO HS 01/23/24 01/23/24 Allergies Allergy/AdvReac Type Severity Reaction Status Date / Time No Known Allergies Allergy Verified 01/23/24 03:01 [facility] Disclaimer: The information contained in this section may have been updated after the patient was seen, as this information can be updated by other users. Medical History Acute and chronic respiratory failure with hypoxia Cataract Colon cancer Diabetes mellitus, type 2 Gallstone Nodule of right lung Pneumonia Right arm fracture Surgical History History of cholecystectomy History of resection of large bowel Hx colon Cancer History of total left knee replacement Social History Smoking Status: Never smoker alcohol intake: never current occupational status: retired Travel in the last 8 weeks: None ROS Obtained: Yes All systems reviewed & no additional complaints except as documented Physical Exam General General appearance: alert and in no apparent distress Head Head exam: atraumatic and normocephalic Eye Eye exam: Present normal appearance, PERRL and EOMI ENT ENT exam: Present normal oropharynx and normal external ear exam Neck Neck exam: Present normal inspection and full ROM Chest Chest inspection: Present normal inspection and symmetric chest wall rise; Absent tenderness Respiratory Respiratory exam: Present normal lung sounds bilaterally; Absent respiratory distress Cardiovascular Cardiovascular exam: Present regular rate and normal rhythm Abdominal Exam Abdominal exam: Present soft and tenderness (Mild, midline overlying patient's large hernia defect. Bowel is felt, but easily reducible.); Absent distention or guarding Extremities Exam Extremities exam: Present normal inspection; Absent edema or joint swelling Back Exam Back exam: Present normal inspection; Absent tenderness Neurological Exam Neurological exam: Present alert and oriented X3; Absent motor sensory deficit Psychiatric Psychiatric exam: Present normal affect and normal mood Skin Skin exam: Present warm, dry and normal color Lymphatic Lymphatic Findings: no adenopathy Medical Decision Making Medical Records Medical records reviewed: Yes I reviewed the patient's medical records. Jonathan Inquiry Pt receiving controlled substance: No Jonathan was queried for this patient: No Vital Signs: 01/23/24 02:51 01/23/24 03:00 Temperature 98.3 F Temperature Source Axillary Pulse Rate 68 Pulse Rate [Left] 66 Respiratory Rate 19 15 Blood Pressure 149/82 H Blood Pressure [Right Arm] 154/92 H Blood Pressure Mean 99 Blood Pressure Mean [Right Arm] 112 Blood Pressure Source [Right Arm] Automatic Cuff Blood Pressure Position [Right Arm] Supine 02 Sat by Pulse Oximetry 94 L 90 L Oxygen Delivery Method Room Air Room Air Lab Data Lab results reviewed: Yes I reviewed the patient's lab results. Lab Results 01/23/24 03:11: WBC 6.1, RBC 4.37, Hgb 13.5, Hct 42.6, MCV 97.6, MCH 31.0, MCHC 31.8, RDW 13.5, Plt Count 151, MPV 8.0, Neut % (Auto) 65.3, Lymph % (Auto) 24.2, [place] % (Auto) 6.8, Eos % (Auto) 2.7, Baso % (Auto) 1.1, Neut # (Auto) 4.0, Lymph # (Auto) 1.5, [place] # (Auto) 0.4, Eos # (Auto) 0.2, Baso # (Auto) 0.1, Sodium 138, Potassium 3.8, Chloride 99, Carbon Dioxide 34 H, Anion Gap 8.8, BUN 17, Creatinine 0.70, Estimated Creat Clear 72, Estimated GFR 80, Est GFR ( Amer) 97, Glucose 188 H, Lactate 1.1, Calcium 9.0, Total Bilirubin 0.3, AST 31, ALT 16, Alkaline Phosphatase 60, Total Protein 6.0 L, Albumin 3.6, Globulin 2.4, Albumin/Globulin Ratio 1.5, Lipase 164, Urine Color Yellow, Urine Appearance Clear, Urine pH 7.5, Ur Specific [place] 1.015, Urine Protein Negative, Urine Glucose (UA) Negative, Urine Ketones Negative, Urine Blood Negative, Urine Nitrate Negative, Urine Bilirubin Negative, Urine Urobilinogen 1.0, Ur Leukocyte Esterase Negative, Urine RBC None, Urine WBC Occasional, Ur Squamous Epith Cells Occasional, Urine Bacteria None 01/23/24 03:11 01/23/24 03:11 Orders (Tests/Meds): ED MEDICATIONS Discontinued Medications Generic Name Dose Route Start Last Admin Trade Name Freq PRN Reason Stop Dose Admin Iopamidol 100 ml 01/23/24 03:46 01/23/24 03:47 Iopamidol-370 (76%);100ml Bottle IV 01/23/24 03:47 100 ml ONCE ONE Administration Ondansetron HCl 4 mg 01/23/24 02:59 01/23/24 03:14 Ondansetron 4mg/2ml Vial IV 01/23/24 03:00 4 mg ONCE ONE Administration Sodium Chloride 50 ml 01/23/24 03:46 01/23/24 03:47 0.9 % Sodium Chloride 50 Ml Vial IV 01/23/24 03:47 50 ml ONCE ONE Administration Sodium Chloride 10 ml 01/23/24 03:46 01/23/24 03:47 Sodium Chloride 0.9% 10ml Syr (Rad Only) IV 01/23/24 03:47 10 ml ONCE ONE Administration ORDERS Category Date Time Status CT angio abdomen pelvis Stat Cat Scan 01/23/24 02:59 Completed CBC w/Auto Diff [Complete Blood Count Auto Diff] Stat Lab 01/23/24 03:11 Completed CMP [Comprehensive Metabolic Panel] Stat Lab 01/23/24 03:11 Completed Lactic Acid Stat Lab 01/23/24 03:11 Completed Lipase Stat Lab 01/23/24 03:11 Completed UA [Urinalysis and Microscopic] Stat Lab 01/23/24 03:11 Completed ECG Data Tracing #1: I reviewed this ECG and interpreted as documented below: Sinus rhythm, rate of 64, no concerning ST or T wave changes, no evidence of arrhythmia ECG initial impression date: 01/23/24 ECG initial impression time: 03:01 Medical Decision Narrative: 83-year-old female presents with acute onset severe abdominal pain that has essentially resolved prior to arrival via EMS. History was obtained interactive discussion with patient, EMS, chart review. On arrival, patient is [afebrile, hemodynamically stable, satting appropriately, alert, oriented x4, GCS 15], moving all extremities spontaneously. Full physical exam performed and significant for mild abdominal tenderness with easily reducible hernia noted. Differential includes but is not limited to mesenteric ischemia, bowel perforation, incarcerated hernia, colitis, diverticulitis, appendicitis,. Patient was given Zofran for symptomatic management and correction of underlying abnormalities. Workup initiated including CBC CMP lipase lactate UA EKG CTA abdomen pelvis. On re-evaluation, patient [remains afebrile, HD stable.] Continues to report symptomatic resolution. Laboratory workup independently interpreted by me and significant for no leukocytosis, normal renal function, no significant electrolyte derangement, urine without evidence of infection.. Imaging independently interpreted by me and significant for no evidence of acute mesenteric ischemia, no obstruction or perforation, no explanation for patient's pain. Does show a fair amount of colonic gas within the patient's hernia defect. See radiology read for full review of final results. EKG independently interpreted by me and significant for normal sinus rhythm. On reassessment patient continues to be asymptomatic. No evidence of emergent pathology noted on extensive workup. Patient's pain could be related to intermittent gas within the patient's hernia defect. No evidence of incarceration or strangulation. Patient's hernia defect on exam is large and easily reducible. I had an interactive discussion with patient regarding her presentation. She was discharged in stable condition. Turn precautions given. Procedures Risk/Benefits of Procedure(s) Were Explained: Yes Critical Care Critical Care Time Critical Care Time: No
--- NOTE | 2024-01-23 04:31 | PC.NURSE ---
Called patient's emergency contact, Kylee Alonso to pick her up. Contact reports she will be here in less than 1 hour. Patient updated
[2024-01-23 06:00] VITALS: BP 154/68; PULSE 66; RESP 18; TEMP 36.6; O2SAT 94
== END 2024-01-23 06:00 | disposition home or self-care (01) ==
PROVIDERS: Emergency Provider Emergency Medicine; PCP Nurse Practitioner Family
DX: R10.84 Generalized abdominal pain (principal); E11.9 Type 2 diabetes mellitus without complications; I10 Essential (primary) hypertension; E78.5 Hyperlipidemia, unspecified; Z79.4 Long term (current) use of insulin
CPT/HCPCS: 74174; 80053; 81001; 83605; 83690; 85025; 93005; 96374; 99284; J2405; Q9967

== ENCOUNTER 2024-08-06 11:49 | Emergency (ER) | payer MEDICARE, MEDICAID, SELFPAY ==
[2024-08-06] VITALS (11 sets, daily range): BP systolic 0–194; BP diastolic 0–110; PULSE 59–86; RESP 15–25; TEMP 36.6; O2SAT 90–96; BMI 32.3
--- NOTE | 2024-08-06 12:26 | ED_ITS ---
Discharge Plan Disposition Patient Disposition: Home, Self-Care Condition: Good Prescriptions Prescriptions: No Action furosemide 40 mg tablet 40 mg PO DAILY gabapentin 600 mg tablet 600 mg PO BID metoprolol succinate 100 mg tablet extended release 24 hr 100 mg PO DAILY aspirin 81 mg tablet,delayed release (DR/EC) 81 mg PO DAILY potassium chloride 20 mEq tablet,ER particles/crystals 20 meq PO DAILY lisinopril 30 mg tablet 30 mg PO DAILY dorzolamide-timolol 22.3-6.8 mg/mL drops 1 drp Eye-Both HS ergocalciferol (vitamin D2) [Vitamin D2] 1,250 mcg (50,000 unit) capsule 1,250 mcg PO WEEKLY insulin asp prt-insulin aspart [Novolog Mix 70-30FlexPen U-100] 100 unit/mL (70-30) insulin pen 40 unit SQ BIDWMEAL Patient Comments: Inject 40 units twice a day by subcutaneous route. rosuvastatin 10 mg tablet 10 mg PO HS Referrals Follow up/Referrals: Elvie Murdock [Primary Care Provider] - See instructions Activity Restrictions/Add. Instructions Additional Instructions/Restrictions: As we discussed, you have a parainfluenza viral infection. I recommend continuing to utilize your oxygen [id number] instead of just at nighttime for comfort. If you have no improvement follow-up with your PCP return to the ER as needed. Clinical Impressions Clinical Impression: Viral lower respiratory tract infection Print Language Print Language: Danish Discharge ED Provider: Erick Murray HPI <ASYA Dockery - Last Filed: 08/06/24 16:27> General Chief Complaint: Shortness of Breath/Dyspnea Stated Complaint: SOA Time Seen by Provider: 08/06/24 12:26 History of Present Illness HPI narrative: Patient presents for evaluation of dyspnea. Patient states that she began to smothering around 3 AM this morning. Patient normally utilizes a reclining bed to sleep. She states that she had abrupt onset of dyspnea but no chest pain fever chills hemoptysis hematochezia melena nausea vomit diarrhea. It persisted for about 3 hours and then resolved. Patient also recently has a history of lung cancer status post 3 doses of external beam radiation but no chemotherapy or surgery. Related Data Home Medications ?Medication ?Instructions ?Recorded ?Confirmed aspirin 81 mg tablet,delayed 81 mg PO DAILY 01/23/24 01/23/24 release dorzolamide 22.3 mg-timolol 6.8 1 drp Eye-Both HS 01/23/24 01/23/24 mg/mL eye drops ergocalciferol (vitamin D2) 1,250 1,250 mcg PO WEEKLY 01/23/24 01/23/24 mcg (50,000 unit) capsule (Vitamin D2) furosemide 40 mg tablet 40 mg PO DAILY 01/23/24 01/23/24 gabapentin 600 mg tablet 600 mg PO BID 01/23/24 01/23/24 insulin aspar prot-insulin aspart 40 unit SQ BIDWMEAL 01/23/24 01/23/24 100 unit/mL (70-30) subcutaneous pen (Novolog Mix 70-30FlexPen U-100) lisinopril 30 mg tablet 30 mg PO DAILY 01/23/24 01/23/24 metoprolol succinate 100 mg 100 mg PO DAILY 01/23/24 01/23/24 tablet,extended release 24 hr potassium chloride 20 mEq 20 meq PO DAILY 01/23/24 01/23/24 tablet,extended release(part/cryst) rosuvastatin 10 mg tablet 10 mg PO HS 01/23/24 01/23/24 Allergies Allergy/AdvReac Type Severity Reaction Status Date / Time No Known Allergies Allergy Verified 01/23/24 03:01 [facility] <ASYA Dockery - Last Filed: 08/06/24 16:27> [facility] Disclaimer: The information contained in this section may have been updated after the patient was seen, as this information can be updated by other users. Medical History Acute and chronic respiratory failure with hypoxia Cataract Colon cancer Diabetes mellitus, type 2 Gallstone Nodule of right lung Pneumonia Right arm fracture Surgical History History of cholecystectomy History of resection of large bowel Hx colon Cancer History of total left knee replacement Social History Smoking Status: Current every day smoker alcohol intake: never current occupational status: retired Travel in the last 8 weeks: None Have you lived/traveled outside US in past 30 days?: No Contact w/someone who lives/traveled outside US past 30 days?: No Exposure to someone with infectious disease in past 14 days?: No Do you have a fever (greater than 100.4 F or 38 C)?: No Have you tested positive for COVID-19: No Exposed to someone with COVID-19 in past 14 days?: No Do you have a sore throat?: No Do you have a cough?: No Do you have any weakness?: No Do you have any diarrhea?: No Are you experiencing any unusual bleeding?: No Do you have any muscle aches/pain?: No Do you have any abdominal pain?: No Are you experiencing loss of taste or smell?: No Other Medical History Have you received the Flu Vaccine for this season: No Have you received the Pneumonia Vaccine: Yes <ASYA Dockery - Last Filed: 08/06/24 16:27> ROS Obtained: Yes Systems reviewed as appropriate & no additional complaints except as documented Physical Exam <ASYA Dockery - Last Filed: 08/06/24 16:27> General General appearance: alert and in no apparent distress Respiratory Respiratory exam: Present normal lung sounds bilaterally; Absent respiratory distress, wheezes or accessory muscle use Cardiovascular Cardiovascular exam: Present regular rate Neurological Exam Neurological exam: Present alert and oriented X3 HEART Score <ASYA Dockery - Last Filed: 08/06/24 16:27> HEART Score HEART Score assessment performed?: Yes History (anamnesis): Slightly suspicious ECG: Non-specific disturbance Age: >65 years Risk factors: 3 or more risk factors Troponin: </= normal limit HEART Score: 5 <Erick Murray MD - Last Filed: 08/06/24 17:00> HEART Score HEART Score: 5 Critical Care <ASYA Dockery - Last Filed: 08/06/24 16:27> Critical Care Time Critical Care Time: No Medical Decision Making <ASYA Dockery - Last Filed: 08/06/24 16:27> Medical Records Medical records reviewed: Yes I reviewed the patient's medical records. Jonathan Inquiry Pt receiving controlled substance: No Vital Signs Vital Signs: 08/06/24 11:49 08/06/24 13:23 08/06/24 13:31 Temperature 98 F Temperature Source Oral Pulse Rate 67 66 Pulse Rate [Right] 67 Respiratory Rate 20 24 15 Blood Pressure 119/59 L 103/58 L Blood Pressure [Right Arm] 194/110 H Blood Pressure Mean [Right Arm] 138 02 Sat by Pulse Oximetry 93 L 91 L 92 L Oxygen Delivery Method Room Air Room Air Room Air 08/06/24 13:35 08/06/24 13:35 08/06/24 14:00 Temperature Temperature Source Pulse Rate 74 71 68 Pulse Rate [Right] Respiratory Rate 25 H Blood Pressure 121/67 Blood Pressure [Right Arm] Blood Pressure Mean [Right Arm] 02 Sat by Pulse Oximetry 90 L Oxygen Delivery Method Room Air 08/06/24 14:30 08/06/24 15:00 08/06/24 15:30 Temperature Temperature Source Pulse Rate 65 64 62 Pulse Rate [Right] Respiratory Rate 23 15 21 Blood Pressure 118/68 129/75 123/68 Blood Pressure [Right Arm] Blood Pressure Mean [Right Arm] 02 Sat by Pulse Oximetry 91 L 94 L 96 Oxygen Delivery Method Room Air Room Air Room Air 08/06/24 15:50 08/06/24 16:01 08/06/24 16:49 Temperature 97.8 F Temperature Source Oral Pulse Rate 63 59 L 86 Pulse Rate [Right] Respiratory Rate 16 21 18 Blood Pressure 151/61 H 152/73 H 0/0 L Blood Pressure [Right Arm] Blood Pressure Mean [Right Arm] 02 Sat by Pulse Oximetry 94 L 96 Oxygen Delivery Method Room Air Room Air Room Air Lab Data Lab results reviewed: Yes I reviewed the patient's lab results. Labs: Lab Results 08/06/24 12:43: Chlamy pneumoniae PCR Not detected, Adenovirus (PCR) Not detected, B. pertussis DNA (PCR) Not detected, Coronavirus OC43 (PCR) Not detected, Coronavirus HKU1 (PCR) Not detected, Coronavirus 229E (PCR) Not detected, SARS-CoV-2 (PCR) Not detected, Coronavirus NL63 (PCR) Not detected, Human Metapneumovir PCR Not detected, Influenza A (H1) PCR Not detected, Influ A (H1N1/09) PCR Not detected, Influenza A (H3) PCR Not detected, Influenza Type A (PCR) Not detected, Influenza Type B (PCR) Not detected, M. pneumoniae (PCR) Not detected, Parainfluenza 1 (PCR) Not detected, Parainfluenza 2 (PCR) Not detected, Parainfluenza 3 (PCR) Not detected, Parainfluenza 4 (PCR) Detected A, RSV (PCR) Not detected, Entero/Rhino (PCR) Not detected 08/06/24 13:23: WBC 6.7, RBC 4.78, Hgb 15.2, Hct 45.6, MCV 95.5, MCH 31.9 H, MCHC 33.4, RDW 12.7, Plt Count 157, MPV 8.1, Neut % (Auto) 62.5, Lymph % (Auto) 26.6, [place] % (Auto) 7.1, Eos % (Auto) 2.5, Baso % (Auto) 1.2, Neut # (Auto) 4.2, Lymph # (Auto) 1.8, [place] # (Auto) 0.5, Eos # (Auto) 0.2, Baso # (Auto) 0.1, S odium 135 L, Potassium 5.0, Chloride 101, Carbon Dioxide 36 H, Anion Gap 3.0 L, BUN 23 H, Creatinine 0.80, Estimated Creat Clear 61, Estimated GFR 69, Est GFR ( Amer) 83, Glucose 86, Calcium 9.4, Magnesium 1.8, Total Bilirubin 1.1, AST 74 H, ALT 19, Alkaline Phosphatase 71, Troponin I 0.01, NT-Pro-B Natriuret Pep 725 H, Total Protein 7.4, Albumin 4.4, Globulin 3.0, Albumin/Globulin Ratio 1.5 08/06/24 15:45: Urine Color Yellow, Urine Appearance Clear, Urine pH 6.0, Ur Specific Willows 1.010, Urine Protein Negative, Urine Glucose (UA) Negative, Urine Ketones Negative, Urine Blood Negative, Urine Nitrate Negative, Urine Bilirubin Negative, Urine Urobilinogen 0.2, Ur Leukocyte Esterase Negative, Urine RBC None, Urine WBC Occasional, Ur Squamous Epith Cells 3-5, Urine Bacteria Trace 08/06/24 13:23 08/06/24 13:23 Response Orders (Tests/Meds): ED MEDICATIONS Discontinued Medications Generic Name Dose Route Start Last Admin Trade Name Freq PRN Reason Stop Dose Admin Albuterol/Ipratropium 3 ml 08/06/24 12:34 08/06/24 13:35 Ipratropium/Albuterol 3 Ml Neb IH 08/06/24 12:35 3 ml ONCE ONE Administration Iopamidol 70 ml 08/06/24 15:16 08/06/24 15:18 Iopamidol-370 (76%);100ml Bottle IV 08/06/24 15:17 70 ml ONCE ONE Administration Methylprednisolone Sodium Succinate 125 mg 08/06/24 12:34 08/06/24 13:44 Methylprednisolone Sod Succ 125mg Vial IV 08/06/24 12:35 125 mg ONCE ONE Administration Sodium Chloride 10 ml 08/06/24 13:34 Sodium Chloride 0.9% 10ml Flush Syringe IV 09/05/24 13:33 NEEDED PRN Maintain IV Site Sodium Chloride 50 ml 08/06/24 15:16 08/06/24 15:18 0.9 % Sodium Chloride 50 Ml Vial IV 08/06/24 15:17 50 ml ONCE ONE Administration Sodium Chloride 10 ml 08/06/24 15:16 08/06/24 15:18 Sodium Chloride 0.9% 10ml Syr (Rad Only) IV 09/05/24 15:15 10 ml NEEDED PRN Administration Maintain IV Site ORDERS Category Date Time Status CT angio chest PE protocol Stat Cat Scan 08/06/24 14:57 Completed Chest XR 2 view (NOT portable) [XR chest 2V] Stat Exams 08/06/24 12:34 Completed BNP [NT Pro Brain Natriuretic Pep.] Stat Lab 08/06/24 13:23 Completed CBC w/Auto Diff [Complete Blood Count Auto Diff] Stat Lab 08/06/24 13:23 Completed CMP [Comprehensive Metabolic Panel] Stat Lab 08/06/24 13:23 Completed Full Resp Panel w/COVID ([facility]) Routine Lab 08/06/24 12:43 Completed HIV (1&2) Antibody Rapid Stat Lab 08/06/24 13:23 Received Hep C Ab with Reflex to RNA Stat Lab 08/06/24 13:23 Received Magnesium Stat Lab 08/06/24 13:23 Completed Trop I [Troponin I] Stat Lab 08/06/24 13:23 Completed Troponin I Q3H Lab 08/06/24 15:45 Ordered Troponin I Q3H Lab 08/06/24 18:45 Ordered UA [Urinalysis and Microscopic] Stat Lab 08/06/24 15:45 Completed MDM Narrative Medical Decision Narrative: In summary patient is a 84-year-old female who presents to the emergency department for evaluation of dyspnea. Patient is initially hypertensive with a blood pressure 194/110 with a pulse of 67 breathing 20 times a minute satting at 93% on room air upon arrival, afebrile. Physical exam is remarkable for clear breath sounds bilaterally to the bases without adventitious sounds, no palpable chest pain abdominal pain or dependent edema noted. Review of previous echocardiograms in her chart from 2022 show that both were poor studies but no definitive heart failure was seen or structural abnormalities noted.. Differential diagnosis includes pneumonia versus COPD versus ACS versus PE etc. Initial workup will be conducted with hematologic labs plain film chest x-ray twelve-lead EKG. Initial interventions include DuoNeb Solu-Medrol. Initial workup reviewed by me shows her hematologic labs are nonactionable and my informal interpretation of her imaging shows stable right lower lung lesions with no evidence of new infiltrate or infarct. Patient's respiratory panel was positive for parainfluenza virus. Upon repeat evaluation patient feels subjectively better after being placed on 2 L. Patient does normally wear oxygen at baseline but only at nighttime.. Given this we have essentially ruled out any serious or life-threatening condition unlikely presents an exacerbation of her chronic lung disease due to lower respiratory tract infection of parainfluenza virus. Thus patient is appropriate for discharge with recommendations to continue her oxygen [id number] and strict return precautions. <Erick Murray MD - Last Filed: 08/06/24 17:00> Vital Signs Vital Signs: 08/06/24 11:49 08/06/24 13:23 08/06/24 13:31 Temperature 98 F Temperature Source Oral Pulse Rate 67 66 Pulse Rate [Right] 67 Respiratory Rate 20 24 15 Blood Pressure 119/59 L 103/58 L Blood Pressure [Right Arm] 194/110 H Blood Pressure Mean [Right Arm] 138 02 Sat by Pulse Oximetry 93 L 91 L 92 L Oxygen Delivery Method Room Air Room Air Room Air 08/06/24 13:35 08/06/24 13:35 08/06/24 14:00 Temperature Temperature Source Pulse Rate 74 71 68 Pulse Rate [Right] Respiratory Rate 25 H Blood Pressure 121/67 Blood Pressure [Right Arm] Blood Pressure Mean [Right Arm] 02 Sat by Pulse Oximetry 90 L Oxygen Delivery Method Room Air 08/06/24 14:30 08/06/24 15:00 08/06/24 15:30 Temperature Temperature Source Pulse Rate 65 64 62 Pulse Rate [Right] Respiratory Rate 23 15 21 Blood Pressure 118/68 129/75 123/68 Blood Pressure [Right Arm] Blood Pressure Mean [Right Arm] 02 Sat by Pulse Oximetry 91 L 94 L 96 Oxygen Delivery Method Room Air Room Air Room Air 08/06/24 15:50 08/06/24 16:01 08/06/24 16:49 Temperature 97.8 F Temperature Source Oral Pulse Rate 63 59 L 86 Pulse Rate [Right] Respiratory Rate 16 21 18 Blood Pressure 151/61 H 152/73 H 0/0 L Blood Pressure [Right Arm] Blood Pressure Mean [Right Arm] 02 Sat by Pulse Oximetry 94 L 96 Oxygen Delivery Method Room Air Room Air Room Air Lab Data Labs: Lab Results 08/06/24 12:43: Chlamy pneumoniae PCR Not detected, Adenovirus (PCR) Not detected, B. pertussis DNA (PCR) Not detected, Coronavirus OC43 (PCR) Not detected, Coronavirus HKU1 (PCR) Not detected, Coronavirus 229E (PCR) Not detected, SARS-CoV-2 (PCR) Not detected, Coronavirus NL63 (PCR) Not detected, Human Metapneumovir PCR Not detected, Influenza A (H1) PCR Not detected, Influ A (H1N1/09) PCR Not detected, Influenza A (H3) PCR Not detected, Influenza Type A (PCR) Not detected, Influenza Type B (PCR) Not detected, M. pneumoniae (PCR) Not detected, Parainfluenza 1 (PCR) Not detected, Parainfluenza 2 (PCR) Not detected, Parainfluenza 3 (PCR) Not detected, Parainfluenza 4 (PCR) Detected A, RSV (PCR) Not detected, Entero/Rhino (PCR) Not detected 08/06/24 13:23: WBC 6.7, RBC 4.78, Hgb 15.2, Hct 45.6, MCV 95.5, MCH 31.9 H, MCHC 33.4, RDW 12.7, Plt Count 157, MPV 8.1, Neut % (Auto) 62.5, Lymph % (Auto) 26.6, [place] % (Auto) 7.1, Eos % (Auto) 2.5, Baso % (Auto) 1.2, Neut # (Auto) 4.2, Lymph # (Auto) 1.8, [place] # (Auto) 0.5, Eos # (Auto) 0.2, Baso # (Auto) 0.1, S odium 135 L, Potassium 5.0, Chloride 101, Carbon Dioxide 36 H, Anion Gap 3.0 L, BUN 23 H, Creatinine 0.80, Estimated Creat Clear 61, Estimated GFR 69, Est GFR ( Amer) 83, Glucose 86, Calcium 9.4, Magnesium 1.8, Total Bilirubin 1.1, AST 74 H, ALT 19, Alkaline Phosphatase 71, Troponin I 0.01, NT-Pro-B Natriuret Pep 725 H, Total Protein 7.4, Albumin 4.4, Globulin 3.0, Albumin/Globulin Ratio 1.5 08/06/24 15:45: Urine Color Yellow, Urine Appearance Clear, Urine pH 6.0, Ur Specific [place] 1.010, Urine Protein Negative, Urine Glucose (UA) Negative, Urine Ketones Negative, Urine Blood Negative, Urine Nitrate Negative, Urine Bilirubin Negative, Urine Urobilinogen 0.2, Ur Leukocyte Esterase Negative, Urine RBC None, Urine WBC Occasional, Ur Squamous Epith Cells 3-5, Urine Bacteria Trace Response Orders (Tests/Meds): ED MEDICATIONS Discontinued Medications Generic Name Dose Route Start Last Admin Trade Name Freq PRN Reason Stop Dose Admin Albuterol/Ipratropium 3 ml 08/06/24 12:34 08/06/24 13:35 Ipratropium/Albuterol 3 Ml Neb IH 08/06/24 12:35 3 ml ONCE ONE Administration Iopamidol 70 ml 08/06/24 15:16 08/06/24 15:18 Iopamidol-370 (76%);100ml Bottle IV 08/06/24 15:17 70 ml ONCE ONE Administration Methylprednisolone Sodium Succinate 125 mg 08/06/24 12:34 08/06/24 13:44 Methylprednisolone Sod Succ 125mg Vial IV 08/06/24 12:35 125 mg ONCE ONE Administration Sodium Chloride 10 ml 08/06/24 13:34 Sodium Chloride 0.9% 10ml Flush Syringe IV 09/05/24 13:33 NEEDED PRN Maintain IV Site Sodium Chloride 50 ml 08/06/24 15:16 08/06/24 15:18 0.9 % Sodium Chloride 50 Ml Vial IV 08/06/24 15:17 50 ml ONCE ONE Administration Sodium Chloride 10 ml 08/06/24 15:16 08/06/24 15:18 Sodium Chloride 0.9% 10ml Syr (Rad Only) IV 09/05/24 15:15 10 ml NEEDED PRN Administration Maintain IV Site ORDERS Category Date Time Status CT angio chest PE protocol Stat Cat Scan 08/06/24 14:57 Completed Chest XR 2 view (NOT portable) [XR chest 2V] Stat Exams 08/06/24 12:34 Completed BNP [NT Pro Brain Natriuretic Pep.] Stat Lab 08/06/24 13:23 Completed CBC w/Auto Diff [Complete Blood Count Auto Diff] Stat Lab 08/06/24 13:23 Completed CMP [Comprehensive Metabolic Panel] Stat Lab 08/06/24 13:23 Completed Full Resp Panel w/COVID ([facility]) Routine Lab 08/06/24 12:43 Completed HIV (1&2) Antibody Rapid Stat Lab 08/06/24 13:23 Received Hep C Ab with Reflex to RNA Stat Lab 08/06/24 13:23 Received Magnesium Stat Lab 08/06/24 13:23 Completed Trop I [Troponin I] Stat Lab 08/06/24 13:23 Completed Troponin I Q3H Lab 08/06/24 15:45 Ordered Troponin I Q3H Lab 08/06/24 18:45 Ordered UA [Urinalysis and Microscopic] Stat Lab 08/06/24 15:45 Completed MDM Narrative Medical Decision Narrative: In summary patient is a 84-year-old female who presents to the emergency department for evaluation of dyspnea. Patient is initially hypertensive with a blood pressure 194/110 with a pulse of 67 breathing 20 times a minute satting at 93% on room air upon arrival, afebrile. Physical exam is remarkable for clear breath sounds bilaterally to the bases without adventitious sounds, no palpable chest pain abdominal pain or dependent edema noted. Review of previous echocardiograms in her chart from 2022 show that both were poor studies but no definitive heart failure was seen or structural abnormalities noted.. Differential diagnosis includes pneumonia versus COPD versus ACS versus PE etc. Initial workup will be conducted with hematologic labs plain film chest x-ray twelve-lead EKG. Initial interventions include DuoNeb Solu-Medrol. Initial workup reviewed by me shows her hematologic labs are nonactionable and my informal interpretation of her imaging shows stable right lower lung lesions with no evidence of new infiltrate or infarct. Patient's respiratory panel was positive for parainfluenza virus. Upon repeat evaluation patient feels subjectively better after being placed on 2 L. Patient does normally wear oxygen at baseline but only at nighttime.. Given this we have essentially ruled out any serious or life-threatening condition unlikely presents an exacerbation of her chronic lung disease due to lower respiratory tract infection of parainfluenza virus. Thus patient is appropriate for discharge with recommendations to continue her oxygen [id number] and strict return precautions. I was consulted by the MARIO, and we discussed the complexity of the problems being addressed.I approved the treatment and management plan for this patient?s care in the Emergency Department, thus performing a substantive portion of the medical decision making.Signed, Erick Murray MD
--- NOTE | 2024-08-06 12:34 | XR_ITS ---
FINAL REPORT CLINICAL HISTORY: Dyspnea COMPARISON: 03/13/2023 FINDINGS: CHEST 2 VIEWS PA AND LATERAL The heart is normal in size. The mediastinum is unremarkable. There are mild bibasilar opacities, may represent atelectasis or pneumonia. There is no pneumothorax. IMPRESSION: Mild bibasilar atelectasis or pneumonia. Reviewed, Interpreted and Dictated by Mitchell Menjivar III, MD Transcribed by Jolie Rowan Authenticated and [facility]
--- NOTE | 2024-08-06 12:43 | ECG_ITS ---
APPROVED REPORT Exam: Resting ECG HR:65 bpm ECG Measurements Heart Rate 65 AXES FL 170 P 52 QRSd 94 QRS -44 QT 369 T 40 QTc 380 Conclusion SINUS RHYTHM LEFT AXIS DEVIATION [QRS AXIS < -30] MINIMAL VOLTAGE CRITERIA FOR LVH, CONSIDER NORMAL VARIANT [MEETS CRITERIA IN ONE OF: R(aVL), S(V1), R(V5), R(V5/V6)+S(V1)] NONSPECIFIC ST & T-WAVE ABNORMALITY ABNORMAL ECG Electronically signed by : GILBERTO FORMAN, 08/15/2024 07:13:01
--- NOTE | 2024-08-06 12:57 | PC.NURSE ---
Patient to radiology
[2024-08-06 12:59] LABS: Adenovirus,PCR Not Detected (NotDetected); Bordetella Pertussis Not Detected (NotDetected); Chlamydophila Pneumoniae, PCR Not Detected (NotDetected); Coronavirus 19, PCR Not Detected (NotDetected); Coronavirus 229E Not Detected (NotDetected); Coronavirus NL63 Not Detected (NotDetected); Coronavirus OC43 Not Detected (NotDetected); Coronovirus HKU1,PCR Not Detected (NotDetected); Human Metapneumovirus Not Detected (NotDetected); Influenza A, PCR Not Detected (NotDetected); Influenza AH1, 2009 Not Detected (NotDetected); Influenza AH1, PCR Not Detected (NotDetected); Influenza AH3,PCR Not Detected (NotDetected); Influenza B, PCR Not Detected (NotDetected); Mycoplasma Pneumoniae, PCR Not Detected (NotDetected); Parainfluenza 1, PCR Not Detected (NotDetected); Parainfluenza 2, PCR Not Detected (NotDetected); Parainfluenza 3, PCR Not Detected (NotDetected); Respiratory Syncytial Virus Not Detected (NotDetected); Rhinovirus/Enterovirus Not Detected (NotDetected)
[2024-08-06 13:33] LABS: Basophils # 0.1 K/mm3 (0-0.2); Basophils % 1.2 % (0.1-2.0); Eosinophils # 0.2 K/mm3 (0.0-0.4); Eosinophils % 2.5 % (0.1-12.0); Hematocrit 45.6 % (37.0-47.0); Hemoglobin 15.2 g/dL (12.2-16.2); Lymphocytes # 1.8 K/mm3 (0.7-4.5); Lymphocytes % 26.6 % (10-50); Mean Corpuscular HGB Conc 33.4 g/dL (31.8-35.4); Mean Corpuscular Hemoglobin 31.9 pg (27.0-31.2); Mean Corpuscular Volume 95.5 fl (81-99); Mean Platelet Volume 8.1 fl (7.4-10.4); Monocytes # 0.5 K/mm3 (0.1-1.0); Monocytes % 7.1 % (1.7-9.3); Neutrophils # 4.2 K/mm3 (1.8-7.8); Neutrophils % 62.5 % (37.0-80.0); Platelet Count 157 K/mm3 (142-424); Red Blood Count 4.78 M/mm3 (4.20-5.40); Red Cell Distribution Width 12.7 % (11.5-17.5); White Blood Count 6.7 K/mm3 (4.8-10.8)
[2024-08-06] MEDS: IPRATROPIUM/ALBUTEROL 3 ML NEB IH (13:35)
[2024-08-06 13:37] LABS: Albumin Level 4.4 g/dl (3.5-5.0); Chloride 101 mmol/L (98-107); Sodium 135 mmol/L (136-145)
[2024-08-06 13:40] LABS: Alanine Aminotransferase 19 U/L (12-78); Albumin/Globulin Ratio 1.5 (1.1-1.8); Alkaline Phosphatase 71 U/L (38-126); Aspartate Amino Transferase 74 U/L (14-36); Bilirubin,Total 1.1 mg/dl (0.2-1.3); Blood Urea Nitrogen 23 mg/dl (7-17); Carbon Dioxide 36 mmol/L (22.0-30.0); Creatinine Clearance Estimated 61 mL/min (50-200); Estimated Glomerular Filt Rate 69 ml/min (>60); GFR (African American) 83 ML/MIN (>60); Total Protein,Serum 7.4 g/dl (6.3-8.2)
[2024-08-06 13:41] LABS: Calcium 9.4 mg/dl (8.4-10.2); Glucose 86 mg/dl (74-100)
[2024-08-06] MEDS: METHYLPREDNISOLONE SOD SUCC 125MG VIAL 125 MG IV (13:44)
[2024-08-06 13:53] LABS: Troponin I 0.01 ng/ml (0.00-0.034)
[2024-08-06 14:11] LABS: Magnesium 1.8 mg/dl (1.6-2.3)
[2024-08-06 14:21] LABS: NT Pro Brain Natriuretic Pep. 725 pg/mL (0-450)
--- NOTE | 2024-08-06 14:57 | CT_ITS ---
FINAL REPORT CLINICAL HISTORY: Dyspnea, history of lung cancer COMPARISON: 01/13/2024 FINDINGS: Thin section axial CT images of the chest were obtained with contrast. 3D reformatted images were also obtained. This study was performed with techniques to keep radiation doses as low as reasonably achievable (ALARA). Individualized dose reduction techniques using automated exposure control or adjustment of mA and/or kV according to the patient's size were employed. There is no evidence of pulmonary embolism. There is no evidence of thoracic aortic aneurysm or dissection. There is no evidence of mediastinal or hilar mass or adenopathy. There is cardiomegaly. There is bilateral lower lobe scar or atelectasis. Previously seen nodule in the periphery of the right midlung is stable. Limited images of the upper abdomen reveal cholecystectomy. There is a mild lower thoracic compression fracture of uncertain age but new since prior. IMPRESSION: No evidence of pulmonary embolism. Lower thoracic compression fracture of uncertain age but new since prior. Stable right midlung nodule. Reviewed, Interpreted and Dictated by Mitchell Menjivar III, MD Transcribed by Jolie Rowan Authenticated and [facility]
[2024-08-06] MEDS: 0.9 % SODIUM CHLORIDE 50 ML VIAL IV (15:18)
[2024-08-06] MEDS: IOPAMIDOL-370 (76%);100ML BOTTLE 70 ML IV (15:18)
[2024-08-06] MEDS: SODIUM CHLORIDE 0.9% 10ML SYR (RAD ONLY) 10 ML IV (15:18)
[2024-08-06 15:51] LABS: Microscopic, Urine URINE MICROSCOPIC (MICROSCOPIC)
[2024-08-06 15:53] LABS: Parainfluenza 4, PCR Detected (NotDetected)
[2024-08-06 15:59] LABS: Appearance,Urine CLEAR (Clear); Bilirubin,Urine Negative (Negative); Blood, Urine Negative (Negative); Color,Urine YELLOW (Yellow); Glucose,Urine (UA) Negative (Negative); Ketones,Urine Negative (Negative); Leukocyte Esterase,Urine Negative (Negative); Nitrate,Urine Negative (Negative); Protein,Urine Negative (Negative); Urobilinogen,Urine 0.2 EU/dl (0.2)
[2024-08-06 16:38] LABS: WBC,Urine Occasional #/hpf (0-3)
[2024-08-06 16:40] LABS: Bacteria,Urine Trace /lpf
[2024-08-07 16:29] LABS: HIV Combo NEGATIVE (Negative)
== END 2024-08-06 16:52 | disposition home or self-care (01) ==
PROVIDERS: Physician Assistant; Emergency Provider Emergency Medicine; PCP Nurse Practitioner Family
DX: J22 Unspecified acute lower respiratory infection (principal); R06.02 Shortness of breath; R06.00 Dyspnea, unspecified
CPT/HCPCS: 71046; 71275; 80053; 81001; 83735; 83880; 84484; 85025; 86803; 87389; 87633; 93005; 96374; 99285; J2919; J7620; Q9967